=== PATIENT | female | born 1950 | race Caucasian/White ===

== ENCOUNTER 2017-03-05 08:06 | Emergency (ER) | payer MEDICARE, OTHER ==
[2017-03-05] MEDS ORDERED: ACETAMINOPHEN 325 MG TABLET PO STA (08:41)
[2017-03-05] MEDS ORDERED: ACETAMINOPHEN 325 MG TABLET PO ONE (08:58)
--- NOTE | 2017-03-05 09:50 | XRAY Preliminary Report ---
Exam: XR Cervical Spine 2 View IMPRESSION: 1. No fracture or listhesis noted from C1-C7. 2. Anterior cervical fusion at C4-C5 no evidence of hardware failure or loosening. 3. Multilevel degenerative changes, as above. [facility] SITE ID: [id number]
--- NOTE | 2017-03-05 09:52 | XRAY Preliminary Report ---
Exam: XR Ribs w/PA Chest RT IMPRESSION: Normal chest and rib radiography. [facility] SITE ID: [id number]
--- NOTE | 2017-03-05 09:52 | ED Physician Documentation ---
PD HPI TRUNK INJURY - Stated complaint Stated Complaint: GLF - Chief complaint Chief Complaint: Trauma Ch/Bk - History obtained from History obtained from: Patient, Family (spouse) - History of Present Illness Location: Posterior chest, Right chest, Right back Type of injury: Fall. No: Blunt / blow Timing - onset: Today (this morning getting out of bed, lost balance (has some problems with gait/balance from prior neck cord contusion/injury.) Timing - details: Abrupt onset Quality: Pain Worsened by: Moving, Other (deep breathing) Associated symtptoms: No: Weakness, Numbness (none more than usual from prior cord injury.) Contributing factors: No: Anticoagulated Where injury occured: Home Recently seen: Not recently seen Review of Systems Constitutional: denies: Fever, Chills Nose: denies: Rhinorrhea / runny nose, Congestion Throat: denies: Sore throat Cardiac: denies: Palpitations, Pedal edema, Calf pain Respiratory: denies: Dyspnea, Cough GI: denies: Abdominal Pain, Nausea, Vomiting, Diarrhea : denies: Dysuria, Frequency Skin: denies: Rash Musculoskeletal: reports: Neck pain (lower neck to right side). 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 - Past Surgical History Past Surgical History: Yes General: Bowel surgery Ortho: Spine surgery, Other /ALLERGY AND IMMUNOLOGY CHIEF: Hysterectomy Derm: Other - Present Medications Home Medications: Ambulatory Orders Medication Instructions Recorded Confirmed Felbamate [Felbatol] 1,000 mg PO BID 11/04/12 03/05/17 Polyethylene Glycol 3350 [Miralax] 17 gm PO BID PRN #1 bottle 03/27/13 03/05/17 Bisacodyl [Dulcolax] 10 mg PO BID 11/02/13 03/05/17 Clonazepam 1 mg PO QPM 11/02/13 03/05/17 Esomeprazole Magnesium [Nexium] 40 mg PO BID 11/02/13 03/05/17 Ethosuximide 250 mg PO BID 11/02/13 03/05/17 FLUoxetine [PROzac] 40 mg PO DAILY 11/02/13 03/05/17 Folic Acid 0.4 mg PO DAILY 11/02/13 03/05/17 Potassium Chloride 10 meq PO BID 11/02/13 03/05/17 Sennosides [Senna Laxative] 8.6 mg PO DAILY 11/02/13 03/05/17 fentaNYL 25 MCG PATCH [Duragesic] 12 mcg TOP Q72H 11/02/13 03/05/17 Acetaminophen 500 mg PO Q4H 10/19/15 03/05/17 Metoprolol Succinate [Toprol Xl] 25 mg PO ONCE 11/06/15 03/05/17 Triamterene/Hydrochlorothiazid 1 mg PO DAILY 11/06/15 03/05/17 [Triamterene-Hctz 37.5-25 mg Cp] Acyclovir 200 mg PO DAILY 03/05/17 03/05/17 Aspirin 81 mg PO DAILY 03/05/17 03/05/17 Simvastatin 10 mg PO DAILY 03/05/17 03/05/17 - Allergies Allergies/Adverse Reactions: Allergies Allergy/AdvReac Type Severity Reaction Status Date / Time divalproex sodium AdvReac Severe Rash Verified 10/19/15 21:46 [From Depakote] lithium [[place]] AdvReac Severe Anxiety Verified 10/19/15 21:46 adhesive AdvReac Intermediate Itching Verified 10/19/15 21:46 buprenorphine [From Butrans] AdvReac Intermediate Nausea Verified 10/19/15 21:46 morphine AdvReac Intermediate Itching Verified 10/19/15 21:46 nalbuphine HCl * AdvReac Intermediate Itching Verified 10/19/15 21:46 [From Nubain] pregabalin [From Lyrica] AdvReac Intermediate Anxiety Verified 10/19/15 21:46 buprenorphine HCl * AdvReac Unknown Unknown Verified 10/19/15 21:46 [From Suboxone] carbamazepine [From Tegretol] AdvReac Unknown Unknown Verified 10/19/15 21:46 clobazam [From Onfi] AdvReac Unknown Itching Verified 10/19/15 21:46 naloxone HCl * AdvReac Unknown Unknown Verified 10/19/15 21:46 [From Suboxone] saboxone AdvReac Intermediate Nausea Uncoded 04/21/16 21:46 tape AdvReac Intermediate Itching Uncoded 10/19/15 21:46 - Social History Does the pt smoke?: Yes Smoking Status: Former smoker Does the pt drink ETOH?: No Does the pt have substance abuse?: No - Immunizations Immunizations are current?: No Immunizations: TDAP >10years/unknown - POLST Patient has POLST: No PD ED PE NORMAL - Vitals Vital signs reviewed: Yes - General General: Alert and oriented X 3, No acute distress, Well developed/nourished - HEENT HEENT: Atraumatic - Neck Neck: Supple, no meningeal sign, No bony TTP (some muscular tenderness right lower neck. ), No adenopathy - Cardiac Cardiac: RRR, No murmur - Respiratory Respiratory: Clear bilaterally, Other (right chestwall tenderness without crepitance nor deformity. Some bruising noted anterolateral right. No abd tenderness. ) - Abdomen Abdomen: Normal bowel sounds, Soft, Non tender, Non distended - Female Female : Deferred - Rectal Rectal: Deferred - Back Back: No CVA TTP, No spinal TTP - Derm Derm: Normal color, Warm and dry - Extremities Extremities: No tenderness to palpate, Normal ROM s pain - Neuro Neuro: No motor deficit, No sensory deficit Results - Vitals Vitals: Oxygen O2 Source [With Activity] Room air O2 Source Room air - Rads (name of study) chest/ribs Radiology: Prelim report reviewed (normal) neck xray Radiology: Prelim report reviewed (no acute process) PD MEDICAL DECISION MAKING - ED course Complexity details: reviewed results, re-evaluated patient (feeling better with meds in ED. ), considered differential, d/w patient, d/w family (spouse) Departure - Departure Disposition: 01 Home, Self Care Clinical Impression: Fall from slip, trip, or stumble Qualifiers: Encounter type: initial encounter Qualified Code(s): W01.0XXA - Fall on same level from slipping, tripping and stumbling without subsequent striking against object, initial encounter Contusion of right chest wall Qualifiers: Encounter type: initial encounter Qualified Code(s): S20.211A - Contusion of right front wall of thorax, initial encounter Condition: Stable Record reviewed to determine appropriate education?: Yes Instructions: ED Contusion Chest Wall Comments: Continue usual medications. Add Tylenol every 6 hours if needed for pains. Usual activity and physical therapy is okay. This may hurt for several days to even a week or so but should slowly improve. Discharge Date/Time: 03/05/17 10:38
--- NOTE | 2017-03-05 09:52 | XRAY Report ---
EXAM: CERVICAL SPINE RADIOGRAPHY EXAM DATE: 03/05/2017 09:21 AM. CLINICAL HISTORY: Fell this morning. COMPARISONS: None. TECHNIQUE: 3 views. FINDINGS: Alignment: Normal. No spondylolisthesis or scoliosis. Bones: The cervical vertebral bodies and posterior elements are well visualized from the skull base t hrough C6-C7. No fractures or bone lesions. Disks: Anterior cervical fusion C3-C4 without evidence of hardware failure or loosening. The alignmen t is anatomic. Severe degenerative disk disease at C4-C5 and C6-C7 with moderate degenerative disk di sease at C5-C6. Facets: Facet arthrosis in the cervical spine. Soft Tissues: Normal. No prevertebral soft tissue swelling. The visualized lung apices are clear. IMPRESSION: 1. No fracture or listhesis noted from C1-C7. 2. Anterior cervical fusion at C4-C5 no evidence of hardware failure or loosening. 3. Multilevel degenerative changes, as above. [facility] Referring Provider Line: [phone] SITE ID: [id number]
--- NOTE | 2017-03-05 09:55 | XRAY Report ---
EXAM: RIGHT RIB RADIOGRAPHY EXAM DATE: 03/05/2017 09:21 AM. CLINICAL HISTORY: Patient presents status post fall this morning with pain to cervical spine, upper b ack and right upper ribs. COMPARISON: None. TECHNIQUE: 1 view of the chest and 1 views of the ribs. FINDINGS: Bones: Normal. No fracture or bone lesion. Lungs: No focal opacities. No pneumothorax. No pleural effusions. Mediastinum: Heart and mediastinal contours are unremarkable. Other: None. IMPRESSION: Normal chest and rib radiography. [facility] Referring Provider Line: [phone] SITE ID: [id number]
[2017-03-05] MEDS ORDERED: NITROGLYCERIN SL 0.4 MG TABLET SL ONE (10:18)
[2017-03-05 10:37] VITALS: BP 120/67
== END 2017-03-05 10:38 | disposition home or self-care (01) ==
LOC: ED 08:06
DX: S20.211A Contusion of right front wall of thorax, initial encounter (principal); W01.0XXA Fall on same level from slipping, tripping and stumbling without subsequent striking against object, initial encounter; I10 Essential (primary) hypertension; K21.9 Gastro-esophageal reflux disease without esophagitis; J45.909 Unspecified asthma, uncomplicated; Z85.43 Personal history of malignant neoplasm of ovary; Z79.82 Long term (current) use of aspirin; Z87.891 Personal history of nicotine dependence; Z98.1 Arthrodesis status
CPT/HCPCS: 71101; 72040; 99283; A9270

== ENCOUNTER 2017-03-08 15:21 | Emergency (ER) | payer MEDICARE, OTHER ==
--- NOTE | 2017-03-08 16:25 | ED Physician Documentation ---
PD HPI TRUNK INJURY - Stated complaint Stated Complaint: RIB/BACK PX - Chief complaint Chief Complaint: General - History obtained from History obtained from: Patient, Family - History of Present Illness Location: Posterior chest, Right chest Type of injury: Fall Timing - duration: Days Timing - details: Abrupt onset, Still present (worse the past 1-2 days, increased with movement and deep breathing.) Quality: Pain Worsened by: Moving, Palpating (feels click feeling at times, per ), Other (deep breathing) Associated symtptoms: No: Weakness, Numbness Contributing factors: No: Anticoagulated Where injury occured: Home Recently seen: Emergency Dept (few days ago for same with worse pain since that time. With prior visit, had not wanted Rx for pain meds and was going to use OTCs (in addition to her usual fentanyl patch). 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 : Other HEENT: Chronic vision loss Psych:  Musculoskeletal: Other Derm: None - Past Surgical History Past Surgical History: Yes General: Bowel surgery Ortho: Spine surgery, Other /PHOTO TECHNICIAN: Hysterectomy Derm: Other - Present Medications Home Medications: Ambulatory Orders Medication Instructions Recorded Confirmed Felbamate [Felbatol] 1,000 mg PO BID 11/04/12 03/08/17 Polyethylene Glycol 3350 [Miralax] 17 gm PO BID PRN #1 bottle 03/27/13 03/08/17 Bisacodyl [Dulcolax] 10 mg PO BID 11/02/13 03/08/17 Clonazepam 1 mg PO QPM 11/02/13 03/08/17 Esomeprazole Magnesium [Nexium] 40 mg PO BID 11/02/13 03/08/17 Ethosuximide 250 mg PO BID 11/02/13 03/08/17 FLUoxetine [PROzac] 40 mg PO DAILY 11/02/13 03/08/17 Folic Acid 0.4 mg PO DAILY 11/02/13 03/08/17 Potassium Chloride 10 meq PO BID 11/02/13 03/08/17 Sennosides [Senna Laxative] 8.6 mg PO BID 11/02/13 03/08/17 fentaNYL 25 MCG PATCH [Duragesic] 12 mcg TOP Q72H 11/02/13 03/08/17 Acetaminophen 500 mg PO Q4H 10/19/15 03/08/17 Metoprolol Succinate [Toprol Xl] 25 mg PO ONCE 11/06/15 03/08/17 Triamterene/Hydrochlorothiazid 1 mg PO DAILY 11/06/15 03/08/17 [Triamterene-Hctz 37.5-25 mg Cp] Acyclovir 200 mg PO DAILY 03/05/17 03/08/17 Aspirin 81 mg PO DAILY 03/05/17 03/08/17 Simvastatin 10 mg PO DAILY 03/05/17 03/08/17 Naproxen 375 mg PO BID #20 tablet 03/08/17 Oxycodone HCl/Acetaminophen 1 each PO Q6H PRN #20 tablet 03/08/17 [Percocet 5-325 mg Tablet] - Allergies Allergies/Adverse Reactions: Allergies Allergy/AdvReac Type Severity Reaction Status Date / Time divalproex sodium AdvReac Severe Rash Verified 03/08/17 15:32 [From Depakote] lithium [[place]] AdvReac Severe Anxiety Verified 03/08/17 15:32 adhesive AdvReac Intermediate Itching Verified 03/08/17 15:32 buprenorphine [From Butrans] AdvReac Intermediate Nausea Verified 03/08/17 15:32 morphine AdvReac Intermediate Itching Verified 03/08/17 15:32 nalbuphine HCl * AdvReac Intermediate Itching Verified 03/08/17 15:32 [From Nubain] pregabalin [From Lyrica] AdvReac Intermediate Anxiety Verified 03/08/17 15:32 buprenorphine HCl * AdvReac Unknown Unknown Verified 03/08/17 15:32 [From Suboxone] carbamazepine [From Tegretol] AdvReac Unknown Unknown Verified 03/08/17 15:32 clobazam [From Onfi] AdvReac Unknown Itching Verified 03/08/17 15:32 naloxone HCl * AdvReac Unknown Unknown Verified 03/08/17 15:32 [From Suboxone] saboxone AdvReac Intermediate Nausea Uncoded 03/08/17 15:32 tape AdvReac Intermediate Itching Uncoded 03/08/17 15:32 - Social History Does the pt smoke?: Yes Smoking Status: Former smoker Does the pt drink ETOH?: No Does the pt have substance abuse?: No - Immunizations Immunizations are current?: No Immunizations: TDAP >10years/unknown - POLST Patient has POLST: No PD ED PE NORMAL - Vitals Vital signs reviewed: Yes - General General: Alert and oriented X 3, No acute distress, Well developed/nourished - HEENT HEENT: Atraumatic - Neck Neck: Supple, no meningeal sign, No bony TTP, No adenopathy - Cardiac Cardiac: RRR, No murmur - Respiratory Respiratory: Clear bilaterally, Other (tender right posterolateral lower chest ) - Abdomen Abdomen: Soft, Non tender - Derm Derm: Normal color, Warm and dry, Other (bruising now darker purple/brown in posterolateral lower ribs area. ) - Extremities Extremities: No tenderness to palpate, Normal ROM s pain, No edema, No calf tenderness / cord - Neuro Neuro: Other (decreased sensation variably in legs/lower abd/back due to prior spine injury. ). No: Normal speech (some sentence structure problems, baseline per . ) Results - Vitals Vitals: Oxygen O2 Source [With Activity] Room air O2 Source Room air - Rads (name of study) chest CT Radiology: Prelim report reviewed, EMP read contemporaneously (no PTX. mild atelectasis right lower. 10th rib minimal displaced fx (not seen on prior plain CXR)) PD MEDICAL DECISION MAKING - ED course Complexity details: reviewed results, considered differential, d/w patient Departure - Departure Disposition: 01 Home, Self Care Clinical Impression: Rib fracture Qualifiers: Encounter type: subsequent encounter Rib fracture type: single rib Fracture type: closed Laterality: right Fracture healing: with routine healing Qualified Code(s): S22.31XD - Fracture of one rib, right side, subsequent encounter for fracture with routine healing Contusion of right chest wall Qualifiers: Encounter type: subsequent encounter Qualified Code(s): S20.211D - Contusion of right front wall of thorax, subsequent encounter Fall from slip, trip, or stumble Qualifiers: Encounter type: subsequent encounter Qualified Code(s): W01.0XXD - Fall on same level from slipping, tripping and stumbling without subsequent striking against object, subsequent encounter Condition: Stable Record reviewed to determine appropriate education?: Yes Instructions: ED Fx Rib Prescriptions: Naproxen 375 mg PO BID #20 tablet Oxycodone HCl/Acetaminophen [Percocet 5-325 mg Tablet] 1 each PO Q6H PRN #20 tablet PRN Reason: Pain Comments: Purposeful deep breathing several times a day. He can use an incentive spirometer if you have that at home. Alternatively you can think of blowing up a balloon as an alternative. You can do deep breathing exercises. For the pains I would take naproxen 375 mg twice a day for the next 7-10 days to be sure to take it with food to lessen stomach impact. To that add Tylenol every 4 -6 hours or Percocet if needed for worse pain. The pain should improve at about a week and a half from the injury when the broken rib ends tend to stick together with early union. It will take about 4 weeks to fully heal up. Discharge Date/Time: 03/08/17 18:27
[2017-03-08] MEDS ORDERED: oxyCOD/ACETAMIN 5 MG/325 MG TABLET PO STA (16:45)
[2017-03-08] MEDS ORDERED: oxyCOD/ACETAMIN 5 MG/325 MG TABLET PO ONE (17:07)
--- NOTE | 2017-03-08 17:55 | CT Preliminary Report ---
Exam: CT Chest W/O IMPRESSION: 1. Minimal right base posterior consolidation most likely atelectasis. Very tiny right posterior base pleural effusion suspected. No pneumothorax. 2. Acute right posterior 10th rib fracture with the anterior cortex mild cortical step-off, otherwise nondisplaced. [facility] SITE ID: [id number]
--- NOTE | 2017-03-08 17:57 | CT Report ---
EXAM: CT CHEST EXAM DATE: 03/08/2017 05:26 PM. CLINICAL HISTORY: Fall-right chest injury few days ago; hurting more. COMPARISONS: CT thoracic spine 11/02/2013. TECHNIQUE: Routine helical CT imaging was performed through the chest. IV contrast: None. Reconstruct ions: Coronal and sagittal. In accordance with CT protocol optimization, one or more of the following dose reduction techniques w ere utilized for this exam: automated exposure control, adjustment of mA and/or KV based on patient s ize, or use of iterative reconstructive technique. FINDINGS: Lungs/Pleura: Right upper lobe posterior pleural-based nodule measuring 3 mm appears unchanged from 2 014 consistent with benign. Minimal right base posterior consolidation most likely atelectasis. Very tiny right posterior base pleural effusion suspected. No pneumothorax. Mediastinum: Internal fixation hardware right proximal humerus Bones: Acute right posterior 10th rib fracture with the anterior cortex mild cortical step-off, other cadet nondisplaced. Visualized Abdomen: Unremarkable. IMPRESSION: 1. Minimal right base posterior consolidation most likely atelectasis. Very tiny right posterior base pleural effusion suspected. No pneumothorax. 2. Acute right posterior 10th rib fracture with the anterior cortex mild cortical step-off, otherwise nondisplaced. [facility] Referring Provider Line: [phone] SITE ID: [id number]
[2017-03-08 18:04] VITALS: BP 119/75
== END 2017-03-08 18:27 | disposition home or self-care (01) ==
LOC: ED 15:21
DX: S22.31XD Fracture of one rib, right side, subsequent encounter for fracture with routine healing (principal); S20.211D Contusion of right front wall of thorax, subsequent encounter; W01.0XXD Fall on same level from slipping, tripping and stumbling without subsequent striking against object, subsequent encounter; I10 Essential (primary) hypertension; Z87.891 Personal history of nicotine dependence; C56.9 Malignant neoplasm of unspecified ovary; Z90.710 Acquired absence of both cervix and uterus
CPT/HCPCS: 71250; 99283; 99284; A9270

== ENCOUNTER 2017-09-11 22:47 | Emergency (ER) | payer MEDICARE, OTHER ==
[2017-09-11 23:00] VITALS: BP 121/49
[2017-09-11 23:34] LABS: BASOPHILS # (AUTO) 0.1 10^3/uL (0.0-0.1); BASOPHILS % (AUTO) 0.9 %; EOSINOPHILS # (AUTO) 0.5 10^3/uL (0.0-0.7); EOSINOPHILS % (AUTO) 8.4 %; HGB - HEMOGLOBIN 7.9 g/dL (12.0-16.0); LYMPHOCYTES # (AUTO) 1.3 10^3/uL (1.5-3.5); LYMPHOCYTES % (AUTO) 22.8 %; MEAN CORPUSCULAR HEMOGLOBIN 26.7 pg (27.0-31.0); MEAN CORPUSCULAR VOLUME 83.4 fL (81.0-99.0); MEAN PLATELET VOLUME 6.3 fL (7.9-10.8); MONOCYTES # (AUTO) 0.5 10^3/uL (0.0-1.0); MONOCYTES % (AUTO) 8.2 %; NEUTROPHILS # (AUTO) 3.5 10^3/uL (1.5-6.6); NEUTROPHILS % (AUTO) 59.7 %; PLT - PLATELET COUNT 542 10^3/uL (130-450); RED BLOOD COUNT 2.97 10^6/uL (4.20-5.40); RED CELL DISTRIBUTION WIDTH 17.4 % (12.0-15.0); WHITE BLOOD COUNT 5.8 x10^3/uL (4.8-10.8)
[2017-09-11 23:47] LABS: ALBUMIN 3.6 g/dL (3.2-5.5); ALBUMIN/GLOBULIN RATIO 1.1 (1.0-2.2); BILIRUBIN,TOTAL 0.4 mg/dL (0.2-1.0); CREATININE 1.1 mg/dL (0.4-1.0); TOTAL PROTEIN 6.9 g/dL (6.7-8.2)
--- NOTE | 2017-09-12 00:09 | ED Physician Documentation ---
PD HPI ABD PAIN - Stated complaint Stated Complaint: ABD PX - Chief complaint Chief Complaint: Abd Pain - History obtained from History obtained from: Patient, Family - History of Present Illness Timing - onset: Today Timing - details: Now resolved Quality: Aching Location: RUQ Associated symptoms: No: Fever, Nausea, Vomiting, Diarrhea, Constipation Similar symptoms before: Has not had sx before Recently seen: Surgery - Additional information Additional information: Patient is a 66 year old female presenting to the emergency department for abdominal pain. According to patient and family patient recently had surgery on her humerus and has been on pain medications. patient's states that tonight he was felling the patient's belly since her leg has been cramping recently and when he pushed on it patient seemed in pain. Upon initial evaluation in the emergency department patient denied any abdominal pain and only complained of leg cramping. Review of Systems Constitutional: denies: Fever, Chills Eyes: denies: Decreased vision Ears: denies: Ear pain Nose: reports: Reviewed and negative Throat: reports: Reviewed and negative Cardiac: denies: Chest pain / pressure, Palpitations Respiratory: denies: Dyspnea, Cough, Wheezing GI: reports: Abdominal Pain, Constipation. denies: Nausea, Vomiting : denies: Dysuria, Frequency, Hesitancy Skin: denies: Rash, Lesions Musculoskeletal: reports: Extremity pain. denies: Neck pain, Back pain Neurologic: denies: Generalized weakness, Focal weakness, Numbness Immunocompromised: denies: Immunocompromised PD PAST MEDICAL HISTORY - Past Medical History Cardiovascular: Hypertension Respiratory: Asthma Neuro: Seizure disorder Endocrine/Autoimmune: None GI: GERD DIRECTOR DECISION SUPPORT: 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 : Other HEENT: Chronic vision loss Psych:  Musculoskeletal: Other Derm: None - Past Surgical History Past Surgical History: Yes General: Bowel surgery Ortho: Spine surgery, Other /DIRECTOR DECISION SUPPORT: Hysterectomy Derm: Other - Present Medications Home Medications: Ambulatory Orders Medication Instructions Recorded Confirmed Felbamate [Felbatol] 1,000 mg PO BID 11/04/12 03/08/17 Polyethylene Glycol 3350 [Miralax] 17 gm PO BID PRN #1 bottle 03/27/13 03/08/17 Bisacodyl [Dulcolax] 10 mg PO BID 11/02/13 03/08/17 Clonazepam 1 mg PO QPM 11/02/13 03/08/17 Esomeprazole Magnesium [Nexium] 40 mg PO BID 11/02/13 03/08/17 Ethosuximide 250 mg PO BID 11/02/13 03/08/17 FLUoxetine [PROzac] 40 mg PO DAILY 11/02/13 03/08/17 Folic Acid 0.4 mg PO DAILY 11/02/13 03/08/17 Potassium Chloride 10 meq PO BID 11/02/13 03/08/17 Sennosides [Senna Laxative] 8.6 mg PO BID 11/02/13 03/08/17 fentaNYL 25 MCG PATCH [Duragesic] 12 mcg TOP Q72H 11/02/13 03/08/17 Acetaminophen 500 mg PO Q4H 10/19/15 03/08/17 Metoprolol Succinate [Toprol Xl] 25 mg PO ONCE 11/06/15 03/08/17 Triamterene/Hydrochlorothiazid 1 mg PO DAILY 11/06/15 03/08/17 [Triamterene-Hctz 37.5-25 mg Cp] Acyclovir 200 mg PO DAILY 03/05/17 03/08/17 Aspirin 81 mg PO DAILY 03/05/17 03/08/17 Simvastatin 10 mg PO DAILY 03/05/17 03/08/17 Naproxen 375 mg PO BID #20 tablet 03/08/17 Oxycodone HCl/Acetaminophen 1 each PO Q6H PRN #20 tablet 03/08/17 [Percocet 5-325 mg Tablet] - Allergies Allergies/Adverse Reactions: Allergies Allergy/AdvReac Type Severity Reaction Status Date / Time divalproex sodium AdvReac Severe Rash Verified 09/11/17 22:59 [From Depakote] lithium [[place]] AdvReac Severe Anxiety Verified 09/11/17 22:59 adhesive AdvReac Intermediate Itching Verified 09/11/17 22:59 buprenorphine [From Butrans] AdvReac Intermediate Nausea Verified 09/11/17 22:59 morphine AdvReac Intermediate Itching Verified 09/11/17 22:59 nalbuphine HCl * AdvReac Intermediate Itching Verified 09/11/17 22:59 [From Nubain] pregabalin [From Lyrica] AdvReac Intermediate Anxiety Verified 09/11/17 22:59 buprenorphine HCl * AdvReac Unknown Unknown Verified 09/11/17 22:59 [From Suboxone] carbamazepine [From Tegretol] AdvReac Unknown Unknown Verified 09/11/17 22:59 clobazam [From Onfi] AdvReac Unknown Itching Verified 09/11/17 22:59 naloxone HCl * AdvReac Unknown Unknown Verified 09/11/17 22:59 [From Suboxone] saboxone AdvReac Intermediate Nausea Uncoded 09/11/17 22:59 tape AdvReac Intermediate Itching Uncoded 09/11/17 22:59 - Social History Does the pt smoke?: Yes Smoking Status: Current every day smoker Does the pt drink ETOH?: No Does the pt have substance abuse?: No - Immunizations Immunizations are current?: No Immunizations: TDAP >10years/unknown - POLST Patient has POLST: No PD ED PE NORMAL - Vitals Vital signs reviewed: Yes - General General: Alert and oriented X 3, No acute distress - HEENT HEENT: Atraumatic - Cardiac Cardiac: RRR - Respiratory Respiratory: No respiratory distress - Abdomen Abdomen: Soft, Non distended - Derm Derm: Normal color, No rash - Extremities Extremities: No deformity - Neuro Neuro: Alert and oriented X 3, No motor deficit, No sensory deficit, Normal speech Eye Opening: Spontaneous Motor: Obeys Commands Verbal: Oriented GCS Score: 15 - Psych Psych: Normal mood PD ED PE EXPANDED - HEENT HEENT: Dry mucous membranes - Abdomen Abdomen: Tender to palpation (minimal tenderness to palpation), RUQ Results - Vitals Vitals: Vital Signs - 24 hr 09/11/17 22:54 Temperature 36.5 C Heart Rate 87 Respiratory 18 Rate Blood Pressure 121/49 L O2 Saturation 97 Oxygen O2 Source [With Activity] Room air O2 Source Room air - Labs Labs: Laboratory Tests 09/11/17 09/11/17 23:28 23:28 WBC 5.8 RBC 2.97 L Hgb 7.9 L Hct 24.7 L MCV 83.4 MCH 26.7 L MCHC 32.0 RDW 17.4 H Plt Count 542 H MPV 6.3 L Neut # 3.5 Lymph # 1.3 L Davison # 0.5 Eos # 0.5 Baso # 0.1 Absolute Nucleated RBC 0.01 Nucleated RBC % 0.1 Sodium 133 L Potassium 4.0 Chloride 98 L Carbon Dioxide 25 Anion Gap 10.0 BUN 22 H Creatinine 1.1 H Estimated GFR (MDRD) 50 L Glucose 118 H Calcium 10.0 Total Bilirubin 0.4 AST 20 ALT 14 Alkaline Phosphatase 90 Total Protein 6.9 Albumin 3.6 Globulin 3.3 Albumin/Globulin Ratio 1.1 Lipase 37 PD MEDICAL DECISION MAKING - ED course Complexity details: reviewed old records, reviewed results, re-evaluated patient , considered differential, d/w patient, d/w family ED course: Patient was seen and examined at bedside. labs were drawn and showed no acute abnormality. Findings were discussed with the family and it was decided to hold off on imaging at this time. Patient and family were given detailed discharge and follow up instructions. Patient required no further work up and was stable for discharge with outpatient follow up. Departure - Departure Disposition: 01 Home, Self Care Clinical Impression: Abdominal pain Condition: Good Instructions: ED Abdominal Pain Unkn Cause Follow-Up: PAOLO SOUZA MD [Primary Care Provider] - Within 3 Days Comments: Your diagnostics today were within normal limits. there were no new major abnormalities on your blood work. You should follow up with your doctor if the symptoms return. You should return to the emergency department for fevers, chills, vomiting, new worsening or uncontrolled symptoms. Discharge Date/Time: 09/12/17 00:31
== END 2017-09-12 00:31 | disposition home or self-care (01) ==
LOC: ED 22:47
DX: S42.494A Other nondisplaced fracture of lower end of right humerus, initial encounter for closed fracture (principal); W01.0XXA Fall on same level from slipping, tripping and stumbling without subsequent striking against object, initial encounter; R10.11 Right upper quadrant pain; I10 Essential (primary) hypertension; J45.909 Unspecified asthma, uncomplicated; K21.9 Gastro-esophageal reflux disease without esophagitis; F17.200 Nicotine dependence, unspecified, uncomplicated; Z85.43 Personal history of malignant neoplasm of ovary
CPT/HCPCS: 36415; 73030; 73060; 73080; 73110; 80053; 83690; 85025; 96372; 99283; A9270; J1170

== ENCOUNTER 2017-09-12 12:03 | Emergency (ER) | payer MEDICARE, OTHER ==
--- NOTE | 2017-09-12 13:20 | XRAY Report ---
EXAM: RIGHT WRIST RADIOGRAPHY EXAM DATE: 09/12/2017 01:04 PM. CLINICAL HISTORY: GLF rt shoulder, elbow, arm, wrist pain. COMPARISON: None. TECHNIQUE: 3 views. FINDINGS: Bones: Normal. No fractures or bone lesions. Joints: Normal. No subluxations. Soft Tissues: Calcifications consistent with chondrocalcinosis in the region of the triangular fibroc artilage, scapholunate and lunate-triquetral proximal interspaces. IMPRESSION: 1. No definite acute abnormality. 2. Chondrocalcinosis. [facility] Referring Provider Line: [phone] SITE ID: [id number]
--- NOTE | 2017-09-12 13:20 | XRAY Preliminary Report ---
Exam: XR WRIST 4 VIEW RT IMPRESSION: 1. No definite acute abnormality. 2. Chondrocalcinosis. [facility] SITE ID: [id number]
--- NOTE | 2017-09-12 13:38 | XRAY Report ---
EXAM: RIGHT SHOULDER RADIOGRAPHY EXAM DATE: 09/12/2017 01:03 PM. CLINICAL HISTORY: GLF, rt arm shoulder pain. COMPARISON: Right elbow today, right shoulder 11/16/2015. TECHNIQUE: 4 views. FINDINGS: Bones: There is a lateral plate with multiple bicortical screws extending from the humeral head throu gh the mid humeral shaft without evidence of hardware failure or migration. There are also some aband onment screw holes in the proximal to mid humeral shaft. There is a chronic fracture at the proximal humeral shaft just below the surgical neck which does not show definite solid osseous union, although there is some callus formation particularly laterally. In addition, there is an incompletely visuali zed nondisplaced fracture of the distal humeral shaft just below the plate. No other acute fracture i s identified. Joints: The glenohumeral and acromioclavicular joints are normal. Soft tissues: The visualized hemithorax is unremarkable. No soft tissue swelling. IMPRESSION: 1. Incompletely visualized nondisplaced fracture of the distal right humeral shaft just below the pro ximal to mid humeral plate. 2. Prior ORIF of a proximal shaft right humerus fracture without evidence of solid bony union. [facility] Referring Provider Line: [phone] SITE ID: [id number]
--- NOTE | 2017-09-12 13:38 | XRAY Report ---
EXAM: RIGHT ELBOW RADIOGRAPHY EXAM DATE: 09/12/2017 01:02 PM. CLINICAL HISTORY: GLF rt arm, pain. COMPARISON: Right shoulder today. TECHNIQUE: 3 views. FINDINGS: Bones: Proximal to mid right humeral shaft plate and screws incompletely visualized. Abandoned screw tracks are noted in the mid humerus. There is a nondisplaced acute fracture obliquely oriented throug h the distal humeral shaft. Proximal radius and although appear intact. Joints: Normal. No effusion. No subluxation. Soft Tissues: Normal. No soft tissue swelling. IMPRESSION: 1. Nondisplaced obliquely oriented acute fracture through the distal right humeral shaft. 2. Plate and screws along the mid right humeral shaft, incompletely visualized. Old screw tracts also are noted. [facility] Referring Provider Line: [phone] SITE ID: [id number]
--- NOTE | 2017-09-12 13:38 | XRAY Preliminary Report ---
Exam: XR SHOULDER 3 VIEW RT IMPRESSION: 1. Incompletely visualized nondisplaced fracture of the distal right humeral shaft just below the pro ximal to mid humeral plate. 2. Prior ORIF of a proximal shaft right humerus fracture without evidence of solid bony union. [facility] SITE ID: [id number]
--- NOTE | 2017-09-12 13:38 | XRAY Preliminary Report ---
Exam: XR ELBOW 3 VIEW RT IMPRESSION: 1. Nondisplaced obliquely oriented acute fracture through the distal right humeral shaft. 2. Plate and screws along the mid right humeral shaft, incompletely visualized. Old screw tracts also are noted. [facility] SITE ID: [id number]
[2017-09-12] MEDS ORDERED: oxyCODONE 5 MG TABLET PO STA (13:40)
--- NOTE | 2017-09-12 13:42 | ED Physician Documentation ---
PD HPI UPPER EXT INJURY - Stated complaint Stated Complaint: GLF - Chief complaint Chief Complaint: Ext Problem - History obtained from History obtained from: Patient, Family () - History of Present Illness Location: Other (She is a little over 2 weeks out from a redo of humeral ORIF on the right for a humeral fracture. This was done by Dr. Harris at [facility]. She fell today and felt a pop in the arm and now has new severe pain in the arm. 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 : Other HEENT: Chronic vision loss Psych:  Musculoskeletal: Other Derm: None - Past Surgical History Past Surgical History: Yes General: Bowel surgery Ortho: Spine surgery, Other /BOILER WATER TESTER: Hysterectomy Derm: Other - Present Medications Home Medications: Ambulatory Orders Medication Instructions Recorded Confirmed Felbamate [Felbatol] 1,000 mg PO BID 11/04/12 03/08/17 Polyethylene Glycol 3350 [Miralax] 17 gm PO BID PRN #1 bottle 03/27/13 03/08/17 Bisacodyl [Dulcolax] 10 mg PO BID 11/02/13 03/08/17 Clonazepam 1 mg PO QPM 11/02/13 03/08/17 Esomeprazole Magnesium [Nexium] 40 mg PO BID 11/02/13 03/08/17 Ethosuximide 250 mg PO BID 11/02/13 03/08/17 FLUoxetine [PROzac] 40 mg PO DAILY 11/02/13 03/08/17 Folic Acid 0.4 mg PO DAILY 11/02/13 03/08/17 Potassium Chloride 10 meq PO BID 11/02/13 03/08/17 Sennosides [Senna Laxative] 8.6 mg PO BID 11/02/13 03/08/17 fentaNYL 25 MCG PATCH [Duragesic] 12 mcg TOP Q72H 11/02/13 03/08/17 Acetaminophen 500 mg PO Q4H 10/19/15 03/08/17 Metoprolol Succinate [Toprol Xl] 25 mg PO ONCE 11/06/15 03/08/17 Triamterene/Hydrochlorothiazid 1 mg PO DAILY 11/06/15 03/08/17 [Triamterene-Hctz 37.5-25 mg Cp] Acyclovir 200 mg PO DAILY 03/05/17 03/08/17 Aspirin 81 mg PO DAILY 03/05/17 03/08/17 Simvastatin 10 mg PO DAILY 03/05/17 03/08/17 Naproxen 375 mg PO BID #20 tablet 03/08/17 Oxycodone HCl/Acetaminophen 1 each PO Q6H PRN #20 tablet 03/08/17 [Percocet 5-325 mg Tablet] - Allergies Allergies/Adverse Reactions: Allergies Allergy/AdvReac Type Severity Reaction Status Date / Time divalproex sodium AdvReac Severe Rash Verified 09/12/17 12:16 [From Depakote] lithium [[place]] AdvReac Severe Anxiety Verified 09/12/17 12:16 adhesive AdvReac Intermediate Itching Verified 09/12/17 12:16 buprenorphine [From Butrans] AdvReac Intermediate Nausea Verified 09/12/17 12:16 morphine AdvReac Intermediate Itching Verified 09/12/17 12:16 nalbuphine HCl * AdvReac Intermediate Itching Verified 09/12/17 12:16 [From Nubain] pregabalin [From Lyrica] AdvReac Intermediate Anxiety Verified 09/12/17 12:16 buprenorphine HCl * AdvReac Unknown Unknown Verified 09/12/17 12:16 [From Suboxone] carbamazepine [From Tegretol] AdvReac Unknown Unknown Verified 09/12/17 12:16 clobazam [From Onfi] AdvReac Unknown Itching Verified 09/12/17 12:16 naloxone HCl * AdvReac Unknown Unknown Verified 09/12/17 12:16 [From Suboxone] saboxone AdvReac Intermediate Nausea Uncoded 09/11/17 22:59 tape AdvReac Intermediate Itching Uncoded 09/11/17 22:59 - Social History Does the pt smoke?: Yes Smoking Status: Current every day smoker Does the pt drink ETOH?: No Does the pt have substance abuse?: No - Immunizations Immunizations are current?: No Immunizations: TDAP >10years/unknown - POLST Patient has POLST: No PD ED PE NORMAL - Vitals Vital signs reviewed: Yes - General General: Alert and oriented X 3, No acute distress - HEENT HEENT: PERRL, EOMI - Neck Neck: Supple, no meningeal sign, No bony TTP - Extremities Extremities: Other (Right arm is kind of diffusely tender above the elbow, surgical incision is clean dry and intact. She has good range of motion at the wrist with normal sensation throughout the hand and normal radial pulse.) - Neuro Neuro: Alert and oriented X 3, Normal speech Results - Vitals Vitals: Vital Signs - 24 hr 09/12/17 12:09 Temperature 36.6 C Heart Rate 80 Respiratory 16 Rate Blood Pressure 132/64 H O2 Saturation 100 Oxygen O2 Source [] Room air O2 Source Room air - Rads (name of study) X-rays of the right shoulder, elbow, wrist Radiology: EMP read contemporaneously (Notable for a nondisplaced oblique fracture just below the end of the hardware on the distal humerus.) PD MEDICAL DECISION MAKING - ED course ED course: I spoke with her orthopedic surgeon, Dr. Harris at [facility] who reviewed the images and wanted her go back in the Gillespie brace and take aggressive fall precautions. They will follow up with her in the clinic. Departure - Departure Disposition: 01 Home, Self Care Clinical Impression: Fall from slip, trip, or stumble Qualifiers: Encounter type: initial encounter Qualified Code(s): W01.0XXA - Fall on same level from slipping, tripping and stumbling without subsequent striking against object, initial encounter Humerus distal fracture Qualifiers: Encounter type: initial encounter Fracture type: closed Fracture morphology: other fracture Fracture alignment: nondisplaced Laterality: right Qualified Code (s): S42.494A - Other nondisplaced fracture of lower end of right humerus, initial encounter for closed fracture Condition: Good Record reviewed to determine appropriate education?: Yes Comments: Dr. Harris would like you to go back into the Gillespie brace, he also recommends pretty much being in the wheelchair at all times without unassisted transfers to avoid further falls. He will see you in 2 weeks, the clinic will call you. Call him if you do not hear from them by mid next week.
--- NOTE | 2017-09-12 14:50 | XRAY Preliminary Report ---
Exam: XR HUMERUS RT IMPRESSION: 1. Healing proximal humeral fracture status post ORIF in stable alignment. 2. Recent nondisplaced hairline fracture in the distal humeral shaft. [facility] SITE ID: [id number]
--- NOTE | 2017-09-12 14:51 | XRAY Report ---
EXAM: RIGHT HUMERUS RADIOGRAPHY EXAM DATE: 09/12/2017 02:32 PM. CLINICAL HISTORY: Follow-up humeral fracture fixation. COMPARISON: Intraoperative right humerus 11/06/2015. TECHNIQUE: 2 views. FINDINGS: Intact sideplate and screws bridging the healing proximal humeral fracture in near anatomic alignment. Reactive sclerosis about the fracture site. There is a nondisplaced oblique hairline fracture in the distal humeral shaft just distal to the side plate. IMPRESSION: 1. Healing proximal humeral fracture status post ORIF in stable alignment. 2. Recent nondisplaced hairline fracture in the distal humeral shaft. [facility] Referring Provider Line: [phone] SITE ID: [id number]
[2017-09-12] MEDS ORDERED: HYDROmorphone 1 MG/ML SYRINGE IM STA (16:18)
[2017-09-12 17:26] VITALS: BP 137/71
== END 2017-09-12 17:17 | disposition home or self-care (01) ==
LOC: ED 12:03
DX: S42.494A Other nondisplaced fracture of lower end of right humerus, initial encounter for closed fracture (principal); W01.0XXA Fall on same level from slipping, tripping and stumbling without subsequent striking against object, initial encounter; I10 Essential (primary) hypertension; K21.9 Gastro-esophageal reflux disease without esophagitis; Z85.43 Personal history of malignant neoplasm of ovary; Z79.82 Long term (current) use of aspirin; F17.200 Nicotine dependence, unspecified, uncomplicated
CPT/HCPCS: 99283

== ENCOUNTER 2017-10-17 22:35 | Outpatient (CLI) | payer MEDICARE, OTHER | END 2017-10-17 22:36 | disposition critical access hospital (66) | LOC: EMS 22:35 | PROVIDERS: ATTEND Surgery | DX: R51 Headache (principal); W01.190A Fall on same level from slipping, tripping and stumbling with subsequent striking against furniture, initial encounter | CPT/HCPCS: A0425; A0429 ==

== ENCOUNTER 2017-10-17 22:51 | Emergency (ER) | payer MEDICARE, OTHER ==
[2017-10-17] MEDS ORDERED: SODIUM CHLORIDE 0.9% 1,000 ML IV ONE (23:17)
[2017-10-17] MEDS ORDERED: KETOROLAC 60 MG/2 ML VIAL IVP STA (23:19)
--- NOTE | 2017-10-17 23:19 | ED Physician Documentation ---
PD HPI Fall - Stated complaint Stated Complaint: GLF - Chief complaint Chief Complaint: Trauma Hd/Nk - History obtained from History obtained from: Patient - History of Present Illness Mechanism of injury: Lost balance ( states the patient has problems with balance and was bending over to pear picker something and fell over, striking head on a chair and then to ground.) Fall distance: Standing position Where injury occurred: Home Timing - onset: Today (just IN [employer]) Injury(ies) location: Head, Neck, Back, Right Upper Extremity (Had recent humerus fracture and is being seen by Ortho at [facility], healing okay and has another appt this coming week. The arm is hurting more since fall but has same level of ROM. Some low back pain initially but is less on arrival. Denies injury to chest and abdomen.) Quality of pain: Pain, Aching Associated symptoms: No: LOC, AMS Worsens with: Movement (of right arm and some pain with ROM of the neck.) Similar symptoms before: Has not had sx before Review of Systems Unable to obtain: Confused (from prior CVA, so ROS gotten from .) Constitutional: denies: Fever Nose: denies: Rhinorrhea / runny nose, Congestion Throat: denies: Sore throat Respiratory: denies: Cough GI: denies: Vomiting, Diarrhea Skin: denies: Abrasion (s), Laceration (s) Musculoskeletal: reports: Neck pain (chronic to some degree, with prior neck surgery.), Back pain (chronic) Neurologic: reports: Generalized weakness, Headache, Head injury. 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: 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 : Other HEENT: Chronic vision loss Psych:  Musculoskeletal: Other Derm: None - Past Surgical History Past Surgical History: Yes General: Bowel surgery Ortho: Spine surgery, Other /LABORER CHEMICAL PROCESSING: Hysterectomy Derm: Other - Present Medications Home Medications: Ambulatory Orders Medication Instructions Recorded Confirmed Felbamate [Felbatol] 800 mg PO BID 11/04/12 10/17/17 Polyethylene Glycol 3350 [Miralax] 17 gm PO BID PRN #1 bottle 03/27/13 10/17/17 Bisacodyl [Dulcolax] 10 mg PO BID 11/02/13 10/17/17 Clonazepam 2 mg PO QPM 11/02/13 10/17/17 Esomeprazole Magnesium [Nexium] 40 mg PO BID 11/02/13 10/17/17 Ethosuximide 250 mg PO BID 11/02/13 10/17/17 FLUoxetine [PROzac] 40 mg PO DAILY 11/02/13 10/17/17 Folic Acid 0.4 mg PO DAILY 11/02/13 10/17/17 fentaNYL 25 MCG PATCH [Duragesic] 12 mcg TOP Q72H 11/02/13 10/17/17 Acetaminophen 500 mg PO Q4H 10/19/15 10/17/17 Metoprolol Succinate [Toprol Xl] 25 mg PO ONCE 11/06/15 10/17/17 Triamterene/Hydrochlorothiazid 1 mg PO DAILY 11/06/15 10/17/17 [Triamterene-Hctz 37.5-25 mg Cp] Acyclovir 200 mg PO DAILY 03/05/17 10/17/17 Aspirin 81 mg PO DAILY 03/05/17 10/17/17 Simvastatin 10 mg PO DAILY 03/05/17 10/17/17 Oxycodone HCl/Acetaminophen 1 each PO Q6H PRN #20 tablet 03/08/17 10/17/17 [Percocet 5-325 mg Tablet] - Allergies Allergies/Adverse Reactions: Allergies Allergy/AdvReac Type Severity Reaction Status Date / Time divalproex sodium AdvReac Severe Rash Verified 10/18/17 19:23 [From Depakote] lithium [[place]] AdvReac Severe Anxiety Verified 10/18/17 19:23 adhesive AdvReac Intermediate Itching Verified 10/18/17 19:23 buprenorphine [From Butrans] AdvReac Intermediate Nausea Verified 10/18/17 19:23 morphine AdvReac Intermediate Itching Verified 10/18/17 19:23 nalbuphine HCl * AdvReac Intermediate Itching Verified 10/18/17 19:23 [From Nubain] pregabalin [From Lyrica] AdvReac Intermediate Anxiety Verified 10/18/17 19:23 buprenorphine HCl * AdvReac Unknown Unknown Verified 10/18/17 19:23 [From Suboxone] carbamazepine [From Tegretol] AdvReac Unknown Unknown Verified 10/18/17 19:23 clobazam [From Onfi] AdvReac Unknown Itching Verified 10/18/17 19:23 naloxone HCl * AdvReac Unknown Unknown Verified 10/18/17 19:23 [From Suboxone] saboxone AdvReac Intermediate Nausea Uncoded 10/18/17 19:23 tape AdvReac Intermediate Itching Uncoded 10/18/17 19:23 - Social History Does the pt smoke?: Yes Smoking Status: Current every day smoker Does the pt drink ETOH?: No Does the pt have substance abuse?: No - Immunizations Immunizations are current?: No Immunizations: TDAP >10years/unknown - POLST Patient has POLST: No PD ED PE NORMAL - Vitals Vital signs reviewed: Yes - General General: Alert and oriented X 3, Well developed/nourished - HEENT HEENT: Other (some tenderness back of head without deformity ) - Neck Neck: Supple, no meningeal sign, No adenopathy, Other (tender lower cervical muscles to the sides. ) - Cardiac Cardiac: RRR, No murmur - Respiratory Respiratory: Clear bilaterally, Other (no chestwall tenderness) - Abdomen Abdomen: Soft, Non tender - Derm Derm: Normal color, Warm and dry - Extremities Extremities: Other (right upper arm with slow guarded ROM but able to flex and extend. ) - Neuro Neuro: No motor deficit, No sensory deficit, Normal speech. No: Alert and oriented X 3 (oriented to person and place, but alert and happy, witty, so symptoms more c/w prior CVA/head injury and not concussion now. ) Results - Vitals Vitals: Oxygen O2 Source [] Room air O2 Source Room air - Labs Labs: Laboratory Tests 10/18/17 10/18/17 00:40 00:40 WBC 4.3 L RBC 3.22 L Hgb 8.1 L Hct 25.1 L MCV 77.9 L MCH 25.0 L MCHC 32.1 RDW 17.2 H Plt Count 236 MPV 6.2 L Neut # 2.8 Lymph # 0.9 L [place] # 0.3 Eos # 0.2 Baso # 0.1 Absolute Nucleated RBC 0.00 Nucleated RBC % 0.0 Sodium 135 Potassium 3.6 Chloride 103 Carbon Dioxide 23 Anion Gap 9.0 BUN 25 H Creatinine 1.0 Estimated GFR (MDRD) 55 L Glucose 98 Calcium 9.5 Total Bilirubin 0.4 AST 17 ALT 14 Alkaline Phosphatase 107 Total Protein 6.5 L Albumin 3.5 Globulin 3.0 Albumin/Globulin Ratio 1.2 Lipase 58 H - Rads (name of study) head CT Radiology: Prelim report reviewed (no acute findings, no bleeding) cervical spine Radiology: Prelim report reviewed (prior surgical changes; no acute fracture. ) right humerus Radiology: Prelim report reviewed (prior fracture seen, not displaced. ) PD MEDICAL DECISION MAKING - ED course Complexity details: reviewed results, considered differential, d/w patient, d/w family Departure - Departure Disposition: 01 Home, Self Care Clinical Impression: Chronic anemia Accidental fall Qualifiers: Encounter type: initial encounter Qualified Code(s): W19.XXXA - Unspecified fall, initial encounter Head contusion Qualifiers: Encounter type: initial encounter Contusion of head detail: scalp Qualified Code(s): S00.03XA - Contusion of scalp, initial encounter Humerus distal fracture Qualifiers: Encounter type: subsequent encounter Fracture type: closed Fracture morphology : other fracture Fracture alignment: nondisplaced Laterality: right Fracture healing: with routine healing Qualified Code(s): S42.494D - Other nondisplaced fracture of lower end of right humerus, subsequent encounter for fracture with routine healing Condition: Stable Record reviewed to determine appropriate education?: Yes Instructions: ED Head Injury Closed Comments: Continue usual medications. No obvious significant injury from the fall tonight. Follow-up with your orthopedist for the arm as planned. Return if other symptoms or problems. Discharge Date/Time: 10/18/17 01:19
--- NOTE | 2017-10-18 00:17 | XRAY Report ---
EXAM: RIGHT HUMERUS RADIOGRAPHY EXAM DATE: 10/17/2017 11:42 PM. CLINICAL HISTORY: Fall with arm pain; recent humerus fracture. COMPARISON: 09/12/2017. TECHNIQUE: 2 views. FINDINGS: Bones: Osteopenia. Metal plate secured to the anterolateral surface of the mid and proximal humerus b y means of multiple screws, traversing a previously described proximal humerus fracture and holding i t in anatomic alignment. Additional nondisplaced fracture extending distally also again noted. Increa sed callus formation at both sites, but not completely bridging at this time. No new fracture or othe r bone lesion. Joints: Unremarkable. Soft Tissues: Unremarkable. IMPRESSION: Healing humerus fractures. No new lesion. [facility] Referring Provider Line: [phone] SITE ID: [id number]
--- NOTE | 2017-10-18 00:28 | CT Report ---
EXAM: CT HEAD EXAM DATE: 10/17/2017 11:43 PM. CLINICAL HISTORY: Fall. Head trauma. COMPARISON: CT head 11/06/2015. TECHNIQUE: Multiaxial CT images were obtained from the foramen magnum to the vertex. Reformats: Coron al. IV contrast: None. In accordance with CT protocol optimization, one or more of the following dose reduction techniques w ere utilized for this exam: automated exposure control, adjustment of mA and/or KV based on patient s ize, or use of iterative reconstructive technique. FINDINGS: Parenchyma: No intraparenchymal hemorrhage. No evidence of mass, midline shift, or CT findings of acu te infarction. Freedman-white differentiation is distinct. Chronic lacunar infarct in the head of the rig ht caudate nucleus is unchanged. Uver-iu-fjucdxji chronic microvascular ischemic change in the deep w sabine matter appears stable. Extraaxial Spaces: Normal for age. No subdural or epidural collections identified. Ventricles: Normal in size and position. Sinuses and Orbits: Imaged paranasal sinuses, orbits, and mastoids show no significant abnormality. Bones: No evidence of fracture or calvarial defect. Other: None. IMPRESSION: 1. No acute intracranial abnormality. No change compared to 11/06/2015. 2. No skull fracture. 3. Small chronic lacunar infarct in right caudate nucleus is unchanged. Chronic microvascular change in the deep white matter appears stable. [facility] Referring Provider Line: [phone] SITE ID: [id number]
--- NOTE | 2017-10-18 00:28 | CT Preliminary Report ---
Exam: CT HEAD W/O IMPRESSION: 1. No acute intracranial abnormality. No change compared to 11/06/2015. 2. No skull fracture. 3. Small chronic lacunar infarct in right caudate nucleus is unchanged. Chronic microvascular change in the deep white matter appears stable. [facility] SITE ID: [id number]
--- NOTE | 2017-10-18 00:42 | CT Report ---
EXAM: CT CERVICAL SPINE WITHOUT CONTRAST DATE: 10/17/2017 11:54 PM. HISTORY: Fall. Neck pain. COMPARISONS: CT cervical spine 11/02/2013. TECHNIQUE: Thin-section axial images were acquired of the cervical spine without contrast. Post-proce ssing: Coronal and sagittal reformats. Other: None. In accordance with CT protocol optimization, one or more of the following dose reduction techniques w ere utilized for this exam: automated exposure control, adjustment of mA and/or KV based on patient s ize, or use of iterative reconstructive technique. FINDINGS: Alignment: No scoliosis or spondylolisthesis. Bones: No fracture or bone lesion. Interspace Levels/Facets: There is stable anterior cervical diskectomy and fusion at C3-C4. Interbody fusion graft appears to b e incorporated with adjacent endplates. The anterior fixation plate and screw system is intact. There is moderate to severe spondylosis and degenerative disk disease at the remaining cervical level s which appears unchanged compared to the prior CT dated 11/02/2013. Posterior osseous ridging and disk bulging produces moderate central canal stenosis at C2-C3. There is also oljv-ra-lycjxkrb central ca nal stenosis at C5-C6 and C6-C7. Uncovertebral and facet hypertrophy also produces multilevel bilater al foraminal stenosis. These findings appear stable. Musculature: Unremarkable. Other: The paravertebral and prevertebral soft tissues are unremarkable. The lung apices are clear. IMPRESSION: 1. No acute abnormality. No cervical spine fracture or subluxation. 2. Stable solid anterior interbody fusion at C3-C4. Fixation plate and screws are intact. 3. Moderate to severe multilevel cervical spondylosis. 4. No significant change compared to CT cervical spine dated 11/02/2013. [facility] Referring Provider Line: [phone] SITE ID: [id number]
[2017-10-18 00:49] LABS: BASOPHILS # (AUTO) 0.1 10^3/uL (0.0-0.1); BASOPHILS % (AUTO) 1.7 %; EOSINOPHILS # (AUTO) 0.2 10^3/uL (0.0-0.7); HGB - HEMOGLOBIN 8.1 g/dL (12.0-16.0); LYMPHOCYTES # (AUTO) 0.9 10^3/uL (1.5-3.5); LYMPHOCYTES % (AUTO) 20.7 %; MEAN CORPUSCULAR HGB CONC 32.1 g/dL (32.0-36.0); MEAN CORPUSCULAR VOLUME 77.9 fL (81.0-99.0); MEAN PLATELET VOLUME 6.2 fL (7.9-10.8); MONOCYTES # (AUTO) 0.3 10^3/uL (0.0-1.0); MONOCYTES % (AUTO) 6.7 %; NEUTROPHILS # (AUTO) 2.8 10^3/uL (1.5-6.6); NEUTROPHILS % (AUTO) 65.9 %; PLT - PLATELET COUNT 236 10^3/uL (130-450); RED BLOOD COUNT 3.22 10^6/uL (4.20-5.40); RED CELL DISTRIBUTION WIDTH 17.2 % (12.0-15.0); WHITE BLOOD COUNT 4.3 x10^3/uL (4.8-10.8)
[2017-10-18 00:57] LABS: ALBUMIN 3.5 g/dL (3.2-5.5); ALBUMIN/GLOBULIN RATIO 1.2 (1.0-2.2); BILIRUBIN,TOTAL 0.4 mg/dL (0.2-1.0); TOTAL PROTEIN 6.5 g/dL (6.7-8.2)
[2017-10-18 01:05] LABS: CALCIUM 9.5 mg/dL (8.5-10.3)
[2017-10-18 01:19] VITALS: BP 146/84
== END 2017-10-18 01:19 | disposition home or self-care (01) ==
LOC: EDUNIT# → ED 22:51
DX: S42.494A Other nondisplaced fracture of lower end of right humerus, initial encounter for closed fracture (principal); S00.03XA Contusion of scalp, initial encounter; W18.30XA Fall on same level, unspecified, initial encounter; Y92.009 Unspecified place in unspecified non-institutional (private) residence as the place of occurrence of the external cause; S42.201D Unspecified fracture of upper end of right humerus, subsequent encounter for fracture with routine healing; D64.9 Anemia, unspecified; I10 Essential (primary) hypertension; J45.909 Unspecified asthma, uncomplicated; G40.909 Epilepsy, unspecified, not intractable, without status epilepticus; F17.200 Nicotine dependence, unspecified, uncomplicated; Z86.73 Personal history of transient ischemic attack (TIA), and cerebral infarction without residual deficits; Z79.82 Long term (current) use of aspirin
CPT/HCPCS: 24535; 70450; 72125; 73060; 73502; 80053; 83690; 85025; 96374; 99283; 99284; J1170; 36415

== ENCOUNTER 2017-10-18 18:49 | Outpatient (CLI) | payer MEDICARE, OTHER | END 2017-10-18 18:50 | disposition critical access hospital (66) | LOC: EMS 18:49 | PROVIDERS: ATTEND Surgery | DX: M79.601 Pain in right arm (principal); M25.551 Pain in right hip; W18.30XA Fall on same level, unspecified, initial encounter; Y93.01 Activity, walking, marching and hiking; Y92.002 Bathroom of unspecified non-institutional (private) residence as the place of occurrence of the external cause | CPT/HCPCS: A0425; A0429 ==

== ENCOUNTER 2017-10-18 19:16 | Emergency (ER) | payer MEDICARE, OTHER ==
--- NOTE | 2017-10-18 20:10 | ED Physician Documentation ---
PD HPI UPPER EXT INJURY - Stated complaint Stated Complaint: GLF - RIGHT ARM INJURY - Chief complaint Chief Complaint: Trauma Ext - History obtained from History obtained from: Family - History of Present Illness Location: Right, Arm Type of injury: Fall (she was in bathroom and turned, lost balance and fell, thinks she might have struck her head. Did land to her arm, which has recent fracture and it is hurting more than it was. Has deformity of the area that was not present prior to the fall. has some pain to the right hip as well.) Where injury occurred: Home Timing - details: Abrupt onset, Still present Improved by: Rest Worsened by: Moving, Palpating Associated symptoms: Swelling Recently seen: Emergency Dept (seen yesterday for a fall as well, without displacement of the recent fracture.) Review of Systems Constitutional: denies: Fever Nose: denies: Rhinorrhea / runny nose, Congestion Throat: denies: Sore throat Respiratory: denies: Cough GI: denies: Nausea, Vomiting, Diarrhea Skin: denies: Abrasion (s), Laceration (s) Neurologic: denies: Headache PD PAST MEDICAL HISTORY - Past Medical History Past Medical History: Yes Cardiovascular: Hypertension Respiratory: Asthma Neuro: CVA, Seizure disorder Endocrine/Autoimmune: None GI: GERD 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: 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 : Other HEENT: Chronic vision loss Psych:  Musculoskeletal: Other Derm: None - Past Surgical History Past Surgical History: Yes General: Bowel surgery Ortho: Spine surgery, 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 /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: Hysterectomy Derm: Other - Present Medications Home Medications: Ambulatory Orders Medication Instructions Recorded Confirmed Felbamate [Felbatol] 800 mg PO BID 11/04/12 10/17/17 Polyethylene Glycol 3350 [Miralax] 17 gm PO BID PRN #1 bottle 03/27/13 10/17/17 Bisacodyl [Dulcolax] 10 mg PO BID 11/02/13 10/17/17 Clonazepam 2 mg PO QPM 11/02/13 10/17/17 Esomeprazole Magnesium [Nexium] 40 mg PO BID 11/02/13 10/17/17 Ethosuximide 250 mg PO BID 11/02/13 10/17/17 FLUoxetine [PROzac] 40 mg PO DAILY 11/02/13 10/17/17 Folic Acid 0.4 mg PO DAILY 11/02/13 10/17/17 fentaNYL 25 MCG PATCH [Duragesic] 12 mcg TOP Q72H 11/02/13 10/17/17 Acetaminophen 500 mg PO Q4H 10/19/15 10/17/17 Metoprolol Succinate [Toprol Xl] 25 mg PO ONCE 11/06/15 10/17/17 Triamterene/Hydrochlorothiazid 1 mg PO DAILY 11/06/15 10/17/17 [Triamterene-Hctz 37.5-25 mg Cp] Acyclovir 200 mg PO DAILY 03/05/17 10/17/17 Aspirin 81 mg PO DAILY 03/05/17 10/17/17 Simvastatin 10 mg PO DAILY 03/05/17 10/17/17 Oxycodone HCl/Acetaminophen 1 each PO Q6H PRN #20 tablet 03/08/17 10/17/17 [Percocet 5-325 mg Tablet] - Allergies Allergies/Adverse Reactions: Allergies Allergy/AdvReac Type Severity Reaction Status Date / Time divalproex sodium AdvReac Severe Rash Verified 10/18/17 19:23 [From Depakote] lithium [[place]] AdvReac Severe Anxiety Verified 10/18/17 19:23 adhesive AdvReac Intermediate Itching Verified 10/18/17 19:23 buprenorphine [From Butrans] AdvReac Intermediate Nausea Verified 10/18/17 19:23 morphine AdvReac Intermediate Itching Verified 10/18/17 19:23 nalbuphine HCl * AdvReac Intermediate Itching Verified 10/18/17 19:23 [From Nubain] pregabalin [From Lyrica] AdvReac Intermediate Anxiety Verified 10/18/17 19:23 buprenorphine HCl * AdvReac Unknown Unknown Verified 10/18/17 19:23 [From Suboxone] carbamazepine [From Tegretol] AdvReac Unknown Unknown Verified 10/18/17 19:23 clobazam [From Onfi] AdvReac Unknown Itching Verified 10/18/17 19:23 naloxone HCl * AdvReac Unknown Unknown Verified 10/18/17 19:23 [From Suboxone] saboxone AdvReac Intermediate Nausea Uncoded 10/18/17 19:23 tape AdvReac Intermediate Itching Uncoded 10/18/17 19:23 - Social History Does the pt smoke?: Yes Smoking Status: Current every day smoker Does the pt drink ETOH?: No Does the pt have substance abuse?: No - Immunizations Immunizations are current?: No Immunizations: TDAP >10years/unknown - POLST Patient has POLST: No PD ED PE NORMAL - Vitals Vital signs reviewed: Yes - General General: No acute distress, Well developed/nourished, Other (alert and conversant, pleasant, oriented to person. ) - HEENT HEENT: Atraumatic - Neck Neck: Supple, no meningeal sign, No bony TTP, No adenopathy - Cardiac Cardiac: RRR, No murmur - Respiratory Respiratory: Clear bilaterally, Other (no chestwall tenderness. ) - Abdomen Abdomen: Soft, Non tender - Back Back: No spinal TTP - Derm Derm: Normal color, Warm and dry - Extremities Extremities: Other (right lower upper arm with obvious deformity and swelling. Good pulses and cap refill distally. Right hip with some tenderness laterally. Good ROM of the hip joint itself. ) - Neuro Neuro: No motor deficit, No sensory deficit Eye Opening: Spontaneous Motor: Obeys Commands Verbal: Oriented GCS Score: 15 - Psych Psych: Normal mood Results - Vitals Vitals: Vital Signs - 24 hr 10/18/17 10/18/17 10/18/17 19:19 22:11 23:29 Temperature 36.6 C 36.4 C L 36.1 C L Heart Rate 78 71 72 Respiratory 18 16 18 Rate Blood Pressure 150/87 H 147/90 H 117/75 O2 Saturation 98 97 97 Oxygen O2 Source [With Activity] Room air O2 Source Room air - Rads (name of study) right hip Radiology: Prelim report reviewed, EMP read contemporaneously (no fractures) right humerus Radiology: Prelim report reviewed, EMP read contemporaneously (now displacement of the previously fractures distal humerus. 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 I did this and he returned info through [facility] that reduction seemed okay and requested repeat films. To have patient seen in Clinic Friday. ) Departure - Departure Disposition: 01 Home, Self Care Clinical Impression: Humerus distal fracture Qualifiers: Encounter type: subsequent encounter Fracture type: closed Fracture morphology : other fracture Fracture alignment: nondisplaced Laterality: right Fracture healing: with routine healing Qualified Code(s): S42.494D - Other nondisplaced fracture of lower end of right humerus, subsequent encounter for fracture with routine healing Accidental fall Qualifiers: Encounter type: initial encounter Qualified Code(s): W19.XXXA - Unspecified fall, initial encounter Condition: Stable Record reviewed to determine appropriate education?: Yes Follow-Up: PAOLO SOUZA MD [Primary Care Provider] - Steve Rincon MD [Physician No Access] - Comments: Keep the splint on and use a sling. Continue regular medications. Follow-up with Dr. Og Harris on Friday as planned. Discharge Date/Time: 10/18/17 23:34
--- NOTE | 2017-10-18 20:24 | XRAY Preliminary Report ---
Exam: XR HIP W/PELVIS 2-3V RT IMPRESSION: No evidence of fracture or dislocation. [facility] SITE ID: [id number]
--- NOTE | 2017-10-18 20:25 | XRAY Report ---
EXAM: RIGHT HIP AND PELVIS RADIOGRAPHY EXAM DATE: 10/18/2017 07:40 PM. HISTORY: Fall, right hip pain. COMPARISONS: None. TECHNIQUE: 1 view of the pelvis and 1 view of the hip. FINDINGS: Bones: Normal. No fracture or bone lesion. Joints: The bilateral hip, pubis symphysis, and sacroiliac joints are preserved. Soft Tissues: Multiple phleboliths within the pelvis. IMPRESSION: No evidence of fracture or dislocation. [facility] Referring Provider Line: [phone] SITE ID: [id number]
--- NOTE | 2017-10-18 20:28 | XRAY Report ---
EXAM: RIGHT HUMERUS RADIOGRAPHY EXAM DATE: 10/18/2017 07:40 PM. CLINICAL HISTORY: Fall, right humerus pain. COMPARISON: Right humerus 10/17/2017. TECHNIQUE: 2 views. FINDINGS: Bones: Previously noted hairline fracture at the distal diaphysis of the humerus has now converted to a complete displaced fracture. Distal fragment is displaced medially 6 mm with lateral angulation of the distal fracture fragment. Again note is made of a proximal humeral diaphyseal fracture with lateral plate and screw fixation. F racture plane is still visible although alignment of the proximal humerus remains near-anatomic. Joints: No elbow or shoulder dislocation in these views. Soft Tissues: Distal soft tissue swelling. IMPRESSION: 1. Conversion of the previously noted hairline fracture to a displaced distal humeral diaphyseal frac ture now with medial displacement and lateral angulation of the distal fracture fragment. 2. Status post open reduction internal fixation of the proximal humerus with near-anatomic alignment of the proximal humerus. [facility] Referring Provider Line: [phone] SITE ID: [id number]
[2017-10-18] MEDS ORDERED: HYDROmorphone 1 MG/ML CARPUJECT IVP STA (21:00)
[2017-10-18] MEDS ORDERED: KETOROLAC 60 MG/2 ML VIAL IVP STA (21:00)
--- NOTE | 2017-10-18 22:31 | XRAY Report ---
EXAM: RIGHT HUMERUS RADIOGRAPHY EXAM DATE: 10/18/2017 09:50 PM. CLINICAL HISTORY: Post reduction. COMPARISON: 10/18/2017. TECHNIQUE: 2 views. FINDINGS: Interval placement overlying cast status post reduction mid to distal humerus fracture. Ali gnment is improved. No new abnormalities are seen. IMPRESSION: Interval reduction right mid to distal humerus fracture. Improved alignment. No new abnor malities are seen. [facility] Referring Provider Line: [phone] SITE ID: [id number]
[2017-10-18 23:31] VITALS: BP 117/75
== END 2017-10-18 23:34 | disposition home or self-care (01) ==
LOC: EDUNIT# → ED 19:16
DX: S42.494A Other nondisplaced fracture of lower end of right humerus, initial encounter for closed fracture (principal); W18.30XA Fall on same level, unspecified, initial encounter; Y92.002 Bathroom of unspecified non-institutional (private) residence as the place of occurrence of the external cause; I10 Essential (primary) hypertension; F17.200 Nicotine dependence, unspecified, uncomplicated; Z79.82 Long term (current) use of aspirin
CPT/HCPCS: 99284

== ENCOUNTER 2018-10-24 14:29 | Outpatient (CLI) | payer MEDICARE, OTHER | END 2018-10-24 14:30 | disposition critical access hospital (66) | LOC: EMS 14:29 | PROVIDERS: ATTEND Surgery | DX: M54.5 Low back pain (principal); M25.551 Pain in right hip; M79.629 Pain in unspecified upper arm; W06.XXXA Fall from bed, initial encounter; Y92.003 Bedroom of unspecified non-institutional (private) residence as the place of occurrence of the external cause | CPT/HCPCS: A0425; A0429 ==

== ENCOUNTER 2018-10-24 14:49 | Emergency (ER) | payer MEDICARE, OTHER ==
[2018-10-24] MEDS ORDERED: HYDROcod/ACETAM 5/325 MG TABLET PO STA (15:05)
--- NOTE | 2018-10-24 15:08 | ED Physician Documentation ---
PD HPI LOWER EXT INJURY - Stated complaint Stated Complaint: GLF - Chief complaint Chief Complaint: Trauma Ext - History obtained from History obtained from: Patient, EMS - History of Present Illness PD HPI LOW EXT INJURY LOCATION: Other (This is a 68-year-old woman with history of seizure disorder, spinal cord injury. Sounds like at her baseline she is minimally ambulatory and mostly bedbound. She presents by ambulance for a fall at home. Sounds like she got caught up in a blanket that was on the floor and fell. She complains of back and leg pain. Really more the back. She denies head or neck injury. She says her last seizure was many years ago. She is a somewhat unreliable historian, no the date for a year, and is a vague historian and somewhat tangential but per the paramedics she is at her baseline according to the who is not here on initial evaluation but is on his way I am told.) Review of Systems Unable to obtain: Confused PD PAST MEDICAL HISTORY - Past Medical History Cardiovascular: Hypertension Respiratory: Asthma Endocrine/Autoimmune: None GI: GERD INSOLE REINFORCER: 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 : Other HEENT: Chronic vision loss Psych:  Musculoskeletal: Other Derm: None - Past Surgical History Past Surgical History: Yes General: Bowel surgery Ortho: Spine surgery, Other /INSOLE REINFORCER: Hysterectomy Derm: Other - Present Medications Home Medications: Ambulatory Orders Medication Instructions Recorded Confirmed Felbamate [Felbatol] 800 mg PO BID 11/04/12 10/17/17 Polyethylene Glycol 3350 [Miralax] 17 gm PO BID PRN #1 bottle 03/27/13 10/17/17 Bisacodyl [Dulcolax] 10 mg PO BID 11/02/13 10/17/17 Clonazepam 2 mg PO QPM 11/02/13 10/17/17 Esomeprazole Magnesium [Nexium] 40 mg PO BID 11/02/13 10/17/17 Ethosuximide 250 mg PO BID 11/02/13 10/17/17 FLUoxetine [PROzac] 40 mg PO DAILY 11/02/13 10/17/17 Folic Acid 0.4 mg PO DAILY 11/02/13 10/17/17 fentaNYL 25 MCG PATCH [Duragesic] 12 mcg TOP Q72H 11/02/13 10/17/17 Acetaminophen 500 mg PO Q4H 10/19/15 10/17/17 Metoprolol Succinate [Toprol Xl] 25 mg PO ONCE 11/06/15 10/17/17 Triamterene/Hydrochlorothiazid 1 mg PO DAILY 11/06/15 10/17/17 [Triamterene-Hctz 37.5-25 mg Cp] Acyclovir 200 mg PO DAILY 03/05/17 10/17/17 Aspirin 81 mg PO DAILY 03/05/17 10/17/17 Simvastatin 10 mg PO DAILY 03/05/17 10/17/17 Oxycodone HCl/Acetaminophen 1 each PO Q6H PRN #20 tablet 03/08/17 10/17/17 [Percocet 5-325 mg Tablet] - Allergies Allergies/Adverse Reactions: Allergies Allergy/AdvReac Type Severity Reaction Status Date / Time divalproex sodium AdvReac Severe Rash Verified 10/18/17 19:23 [From Depakote] lithium [[place]] AdvReac Severe Anxiety Verified 10/18/17 19:23 adhesive AdvReac Intermediate Itching Verified 10/18/17 19:23 buprenorphine [From Butrans] AdvReac Intermediate Nausea Verified 10/18/17 19:23 morphine AdvReac Intermediate Itching Verified 10/18/17 19:23 nalbuphine HCl * AdvReac Intermediate Itching Verified 10/18/17 19:23 [From Nubain] pregabalin [From Lyrica] AdvReac Intermediate Anxiety Verified 10/18/17 19:23 buprenorphine HCl * AdvReac Unknown Unknown Verified 10/18/17 19:23 [From Suboxone] carbamazepine [From Tegretol] AdvReac Unknown Unknown Verified 10/18/17 19:23 clobazam [From Onfi] AdvReac Unknown Itching Verified 10/18/17 19:23 naloxone HCl * AdvReac Unknown Unknown Verified 10/18/17 19:23 [From Suboxone] saboxone AdvReac Intermediate Nausea Uncoded 10/18/17 19:23 tape AdvReac Intermediate Itching Uncoded 10/18/17 19:23 - Social History Does the pt smoke?: Yes Smoking Status: Current every day smoker Does the pt drink ETOH?: No Does the pt have substance abuse?: No - Immunizations Immunizations are current?: No Immunizations: TDAP >10years/unknown - POLST Patient has POLST: No PD ED PE NORMAL - Vitals Vital signs reviewed: Yes - General General: Other (She is alert and oriented to person and place but not time, she is a mediocre historian for events.) - HEENT HEENT: PERRL, EOMI, Ears normal - Neck Neck: Supple, no meningeal sign, No bony TTP - Cardiac Cardiac: RRR, No murmur - Respiratory Respiratory: No respiratory distress, Clear bilaterally - Abdomen Abdomen: Soft, Non tender - Back Back: Other (Mild tenderness of the lumbar spine) - Extremities Extremities: Other (She is holding both hips flexed, but she can lift both legs off the bed. Really no tenderness of either hip, or the knees or ankles. The right upper extremity was also examined because she was having pain there, she has had extensive surgeries there with extensive surgical scars but there is no tenderness and she is able to lift them off the bed.) - Neuro Neuro: bander hand 2-12 intact, No motor deficit, No sensory deficit, Normal speech Eye Opening: Spontaneous Motor: Obeys Commands Verbal: Confused GCS Score: 14 Results - Vitals Vitals: Vital Signs - 24 hr 10/24/18 10/24/18 14:50 15:26 Heart Rate 102 H 85 Respiratory 14 12 Rate Blood Pressure 119/117 H 190/98 H O2 Saturation 99 98 Oxygen O2 Source [With Activity] Room air O2 Source Room air - Rads (name of study) B hip XR Radiology: EMP read contemporaneously (Acute right sided femoral neck fracture with superior displacement, old fracture deformity involving the left femoral shaft.) R humerus Radiology: EMP read contemporaneously (Old fracture deformity of the humerus post fixation with lucency about the humeral neck, after discussion with the and reviewing x-rays on his phone this represents a chronic nonunion.) L spine CT Radiology: EMP read contemporaneously (Mild S-shaped scoliosis with post fusion changes at L2-L3, no acute fracture noted, mild multilevel osteoarthritic changes present.) Procedures - General procedure General procedure: She was difficult for IV access, the nurses tried and failed. I personally placed a long 22-gauge IV in the left deep brachial vein after ChloraPrep using real-time ultrasound guidance that flushed and enriqueta well. PD MEDICAL DECISION MAKING - ED course ED course: 68-year-old woman with frequent falls and a nonunion of the right upper extremities presents after a ground-level fall complaining of hip and back pain. Imaging shows a right subcapital impacted hip fracture. 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 When I pointed out that she does not know what year it is, he says that her baseline, she just does not care. Imaging showed this subcapital hip fracture, she has a history of nonunion of the right upper extremity. She is actually being referred to a genetic counselor I guess because of some issues with bone healing and a concern for some sort of bone healing problem at the [facility]. Because of that I offered potential transfer to [facility] where she has had a prior orthopedic care and the liked that idea and she was accepted by Dr. Abdi there at 4 PM and cobras were completed. She is stable for transfer to a higher level of care. Departure - Departure Disposition: 02 Transfer Acute Care Hosp Clinical Impression: Subcapital fracture of right hip Qualifiers: Encounter type: initial encounter Fracture type: closed Qualified Code(s): S72.011A - Unspecified intracapsular fracture of right femur, initial encounter for closed fracture Condition: Serious
--- NOTE | 2018-10-24 15:45 | XRAY Report ---
Reason: arm inj Procedure Date: 10/24/2018 Accession Number: [id number] / [id number] Procedure: XR - Humerus RT CPT Code: FULL RESULT: EXAM: RIGHT HUMERUS RADIOGRAPHY EXAM DATE: 10/24/2018 03:27 PM. CLINICAL HISTORY: Arm pain post fall. COMPARISON: HUMERUS RT 10/18/2017 9:50 PM HUMERUS RT 10/18/2017 7:39 PM. TECHNIQUE: 2 views. FINDINGS: Bones: There is old fracture deformity involving the humerus, post plate and screw placement. There is increased lucency noted about the humeral neck region. This likely represents acute fracture. Joints: Moderate osteoarthritic changes seen. No evidence of dislocation present. Soft Tissues: Mild soft tissue swelling noted. IMPRESSION: Old fracture deformity involving the humerus, post ORIF, with increased lucency about the humeral neck region which may represent acute fracture. Moderate osteoarthritic changes otherwise seen. RADIA
--- NOTE | 2018-10-24 15:49 | XRAY Report ---
Reason: fall, back and leg pain Procedure Date: 10/24/2018 Accession Number: [id number] / [id number] Procedure: XR - Hips 3-4V BILAT CPT Code: FULL RESULT: EXAM: BILATERAL HIP RADIOGRAPHY EXAM DATE: 10/24/2018 03:29 PM. CLINICAL HISTORY: Fall, back and leg pain. COMPARISON: HIP W/PELVIS 2-3V RT 10/18/2017 7:39 PM. TECHNIQUE: 2 views. FINDINGS: Bones: There is a right-sided femoral neck fracture, with slight superior displacement. There is old fracture deformity involving the left femoral shaft. Joints: Mild osteoarthritic changes otherwise seen. SI joints are grossly unremarkable. Soft Tissues: Normal. No soft tissue swelling. IMPRESSION: 1. Acute right-sided femoral neck fracture with superior displacement. 2. Old fracture deformity involving left femoral shaft. RADIA
--- NOTE | 2018-10-24 15:56 | CT Report ---
Reason: fall, back and leg pain Procedure Date: 10/24/2018 Accession Number: [id number] / [id number] Procedure: CT - LUMBAR SPINE WO CPT Code: FULL RESULT: EXAM: CT LUMBAR SPINE WITHOUT CONTRAST EXAM DATE: 10/24/2018 03:38 PM. CLINICAL HISTORY: Fall, back and leg pain. COMPARISONS: LUMBAR SPINE W/O 11/02/2013 8:46 PM. TECHNIQUE: Thin-section axial images were acquired of the lumbar spine from T12 to S1 without contrast. Post-processing: Coronal and sagittal reformats. Other: None. In accordance with CT protocol optimization, one or more of the following dose reduction techniques were utilized for this exam: automated exposure control, adjustment of mA and/or KV based on patient size, or use of iterative reconstructive technique. FINDINGS: Alignment: There is mild S-shaped scoliosis, grossly unchanged. Bones: Five [id number] lumbar vertebral bodies are present. No fractures or bone lesions. Patient is status post posterior fusion of L2/L3, with additional vertebroplasty changes. Disk Levels/Facets: Mild multilevel osteoarthritic changes present. Musculature: Normal. No fatty atrophy. Other: Grossly unchanged, with right renal cyst present. Status post bowel surgery. IMPRESSION: 1. Mild S-shaped scoliosis, with post-fusion changes at L2/L3. No acute fracture noted. Mild multilevel osteoarthritic changes otherwise present. RADIA
[2018-10-24] MEDS ORDERED: fentaNYL 100 MCG/2 ML VIAL IVP STA ×2 (16:15→17:16)
[2018-10-24 16:35] LABS: INR 1.1 (0.8-1.2)
[2018-10-24 16:39] LABS: BASOPHILS % (AUTO) 0.5 %; EOSINOPHILS # (AUTO) 0.1 10^3/uL (0.0-0.7); EOSINOPHILS % (AUTO) 2.4 %; LYMPHOCYTES % (AUTO) 17.6 %; MEAN CORPUSCULAR HEMOGLOBIN 34.8 pg (27.0-31.0); MEAN CORPUSCULAR HGB CONC 34.4 g/dL (32.0-36.0); MEAN CORPUSCULAR VOLUME 101.1 fL (81.0-99.0); MEAN PLATELET VOLUME 7.7 fL (7.9-10.8); MONOCYTES # (AUTO) 0.2 10^3/uL (0.0-1.0); MONOCYTES % (AUTO) 3.5 %; NEUTROPHILS # (AUTO) 4.3 10^3/uL (1.5-6.6); PLT - PLATELET COUNT 168 10^3/uL (130-450); RED BLOOD COUNT 4.61 10^6/uL (4.20-5.40); RED CELL DISTRIBUTION WIDTH 12.7 % (12.0-15.0); WHITE BLOOD COUNT 5.7 x10^3/uL (4.8-10.8)
[2018-10-24 16:43] LABS: ALBUMIN 4.4 g/dL (3.2-5.5); ALBUMIN/GLOBULIN RATIO 1.4 (1.0-2.2); BILIRUBIN,TOTAL 0.9 mg/dL (0.2-1.0); CALCIUM 10.9 mg/dL (8.5-10.3); CREATININE 0.9 mg/dL (0.4-1.0); TOTAL PROTEIN 7.5 g/dL (6.7-8.2)
[2018-10-24 17:24] VITALS: BP 169/92
== END 2018-10-24 18:15 | disposition short-term general hospital (02) ==
LOC: EDUNIT# → ED 14:49
DX: S72.011A Unspecified intracapsular fracture of right femur, initial encounter for closed fracture (principal); W23.0XXA Caught, crushed, jammed, or pinched between moving objects, initial encounter; W18.30XA Fall on same level, unspecified, initial encounter; I10 Essential (primary) hypertension; Z91.81 History of falling; Z85.43 Personal history of malignant neoplasm of ovary; Z90.710 Acquired absence of both cervix and uterus; F17.200 Nicotine dependence, unspecified, uncomplicated; Z86.69 Personal history of other diseases of the nervous system and sense organs; Z87.81 Personal history of (healed) traumatic fracture
CPT/HCPCS: 36415; 72131; 73060; 73522; 80053; 83690; 85025; 85610; 86850; 86900; 86901; 96374; 96376; 99284; A9270

== ENCOUNTER 2019-04-25 23:07 | Emergency (ER) | payer MEDICARE, OTHER ==
--- NOTE | 2019-04-26 00:32 | ED Physician Documentation ---
PD HPI ABD PAIN - Stated complaint Stated Complaint: CONSTIPATION 1 WEEK - Chief complaint Chief Complaint: Abd Pain - History obtained from History obtained from: Patient - History of Present Illness Timing - onset: How many weeks ago (1) Timing - duration: Weeks (1) Timing - details: Gradual onset Quality: Cramping Location: All over / everywhere Recently seen: Not recently seen - Additional information Additional information: c/o constipation x 1 week. urge to defecate but unable to do so; increasing abdominal distention and cramping pain. has been taking dulcolax but has not tried any other medications or remedies for this Review of Systems Constitutional: denies: Fever, Chills, Sweats GI: reports: Abdominal Pain, Constipation. 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 : Other HEENT: Chronic vision loss Psych:  Musculoskeletal: Other Derm: None - Past Surgical History Past Surgical History: Yes General: Bowel surgery Ortho: Spine surgery, Other /OPERATING MANAGER: Hysterectomy, Oophrectomy Derm: Other - Present Medications Home Medications: Ambulatory Orders Medication Instructions Recorded Confirmed Felbamate [Felbatol] 800 mg PO BID 11/04/12 10/17/17 Polyethylene Glycol 3350 [Miralax] 17 gm PO BID PRN #1 bottle 03/27/13 10/17/17 Bisacodyl [Dulcolax] 10 mg PO BID 11/02/13 10/17/17 Clonazepam 2 mg PO QPM 11/02/13 10/17/17 Esomeprazole Magnesium [Nexium] 40 mg PO BID 11/02/13 10/17/17 Ethosuximide 250 mg PO BID 11/02/13 10/17/17 FLUoxetine [PROzac] 40 mg PO DAILY 11/02/13 10/17/17 Folic Acid 0.4 mg PO DAILY 11/02/13 10/17/17 fentaNYL 25 MCG PATCH [Duragesic] 12 mcg TOP Q72H 11/02/13 10/17/17 Acetaminophen 500 mg PO Q4H 10/19/15 10/17/17 Metoprolol Succinate [Toprol Xl] 25 mg PO ONCE 11/06/15 10/17/17 Triamterene/Hydrochlorothiazid 1 mg PO DAILY 11/06/15 10/17/17 [Triamterene-Hctz 37.5-25 mg Cp] Acyclovir 200 mg PO DAILY 03/05/17 10/17/17 Aspirin 81 mg PO DAILY 03/05/17 10/17/17 Simvastatin 10 mg PO DAILY 03/05/17 10/17/17 Oxycodone HCl/Acetaminophen 1 each PO Q6H PRN #20 tablet 03/08/17 10/17/17 [Percocet 5-325 mg Tablet] - Allergies Allergies/Adverse Reactions: Allergies Allergy/AdvReac Type Severity Reaction Status Date / Time divalproex sodium AdvReac Severe Rash Verified 04/25/19 23:15 [From Depakote] lithium [[place]] AdvReac Severe Anxiety Verified 04/25/19 23:15 adhesive AdvReac Intermediate Itching Verified 04/25/19 23:15 buprenorphine [From Butrans] AdvReac Intermediate Nausea Verified 04/25/19 23:15 morphine AdvReac Intermediate Itching Verified 04/25/19 23:15 nalbuphine HCl * AdvReac Intermediate Itching Verified 04/25/19 23:15 [From Nubain] pregabalin [From Lyrica] AdvReac Intermediate Anxiety Verified 04/25/19 23:15 buprenorphine HCl * AdvReac Unknown Unknown Verified 04/25/19 23:15 [From Suboxone] carbamazepine [From Tegretol] AdvReac Unknown Unknown Verified 04/25/19 23:15 clobazam [From Onfi] AdvReac Unknown Itching Verified 04/25/19 23:15 naloxone HCl * AdvReac Unknown Unknown Verified 04/25/19 23:15 [From Suboxone] saboxone AdvReac Intermediate Nausea Uncoded 10/18/17 19:23 tape AdvReac Intermediate Itching Uncoded 10/18/17 19:23 - Social History Does the pt smoke?: Yes Smoking Status: Former smoker Does the pt drink ETOH?: No Does the pt have substance abuse?: No - Immunizations Immunizations are current?: No Immunizations: TDAP >10years/unknown - POLST Patient has POLST: No PD ED PE NORMAL - Vitals Vital signs reviewed: Yes - General General: Alert and oriented X 3, No acute distress, Well developed/nourished - Abdomen Abdomen: Normal bowel sounds, Soft, Non tender Results - Vitals Vitals: Vital Signs - 24 hr 04/25/19 04/26/19 04/26/19 23:11 01:14 04:39 Temperature 36.8 C Heart Rate 105 H 102 H 92 Respiratory 14 16 16 Rate Blood Pressure 143/68 H 145/70 H 140/83 H O2 Saturation 100 94 99 Oxygen O2 Source [With Activity] Room air O2 Source Room air - Rads (name of study) acute abd. series (xrays) Radiology: Prelim report reviewed, See rad report PD MEDICAL DECISION MAKING - ED course Complexity details: reviewed results, re-evaluated patient, considered differential, d/w patient, d/w family ED course: given soap-suds enema with good results; had large BM and relief of symptoms. says she was recently prescribed miralax but hasn't started taking this yet. I encouraged her to start taking this as prescribed today Departure - Departure Disposition: 01 Home, Self Care Clinical Impression: Constipation Condition: Good Instructions: ED Constipation Follow-Up: PAOLO SOUZA MD [Primary Care Provider] - Discharge Date/Time: 04/26/19 04:49
--- NOTE | 2019-04-26 02:08 | XRAY Report ---
Reason: abdominal pain, possible constipation Procedure Date: 04/26/2019 Accession Number: [id number] / [id number] Procedure: XR - Abdomen Acute CPT Code: FULL RESULT: EXAM: ABDOMINAL SERIES AND PA CHEST EXAM DATE: 04/26/2019 01:51 AM. CLINICAL HISTORY: Abdominal pain, possible constipation. COMPARISON: CHEST 2 VIEW PA/LAT 06/21/2016 5:24 PM. TECHNIQUE: 3 views abdomen and 1 view chest. FINDINGS: CHEST: Lungs/Pleura: No focal opacities. No effusion or pneumothorax. Mediastinum: Within exam limitations, cardiomediastinal contour is normal. ABDOMEN: Bowel Gas Pattern: Large amount of stool and air in colon. No definite dilated air-filled small bowel loops evident. Free Air: None. Other: Postsurgical changes of right femur, cervical spine and lumbar spine. IMPRESSION: Large amount of stool and air in colon. Correlate for constipation. RADIA
[2019-04-26] MEDS ORDERED: SOAP SUDS ENEMA 1 EACH RC STA (02:54)
[2019-04-26 04:40] VITALS: BP 140/83
== END 2019-04-26 04:49 | disposition home or self-care (01) ==
LOC: ED 23:07
DX: K59.00 Constipation, unspecified (principal); I10 Essential (primary) hypertension; Z79.82 Long term (current) use of aspirin; Z87.891 Personal history of nicotine dependence
CPT/HCPCS: 74022; 99282; 99284; A9270

== ENCOUNTER 2019-06-17 06:33 | Day surgery (SDC) | payer MEDICARE, OTHER ==
[~2019-06-17 06:33] MED LIST: CYCLOPENTOLATE 1% OPHTH DROPS 2 ML ONE; KETOROLAC 0.45% OPHTH DROPS ONE; PHENYLEPHRINE 2.5% OPHTH 2 ML DROPS ONE; PROPARACAINE 0.5% OPHTH DROPS 15 ML ONE
[2019-06-17] MEDS ORDERED: LACTATED RINGERS 500 ML IV ONE (06:36)
[2019-06-17] MEDS ORDERED: CYCLOPENTOLATE 1% OPHTH DROPS 2 ML LEFTEYE ONE (07:05)
[2019-06-17] MEDS ORDERED: PHENYLEPHRINE 2.5% OPHTH 2 ML DROPS LEFTEYE ONE (07:05)
[2019-06-17] MEDS ORDERED: KETOROLAC 0.45% OPHTH DROPS LEFTEYE ONE (07:05)
[2019-06-17] MEDS ORDERED: PROPARACAINE 0.5% OPHTH DROPS 15 ML LEFTEYE ONE (07:05)
[2019-06-17] MEDS ORDERED: BRIMONIDINE 0.2% OPHTH DROPS 5 ML ONE ×2 (07:09→07:10)
[2019-06-17] MEDS ORDERED: EPINEPHrine 1 MG/ML AMP ONE ×2 (07:09→07:10)
[2019-06-17] MEDS ORDERED: TRIAMCIN/MOXIFLOX OPHTHALMIC 0.6 ML VIAL IO ONE ×2 (07:10→07:37)
[2019-06-17] MEDS ORDERED: TIMOLOL 0.5% OPHTH DROPS ONE (07:11)
[2019-06-17] MEDS ORDERED: VANCOMYCIN OPHTHALMI 8MG/0.8ML 8 MG/0.8 ML SYRINGE IO ONE ×2 (07:11→07:38)
[2019-06-17] MEDS ORDERED: BSS/LIDOCAINE/EPINEPHRINE 1 ML SYRINGE ONE (07:11)
--- NOTE | 2019-06-17 07:20 | ANESTHESIA ---
Pre-Anesthesia VS, & Labs - Diagnosis L nuclear sclerotic cataract - Procedure L cataract extraction with IOL Height 5 ft 5 in Weight (kg) 50 kg Body Mass Index 17.4 - NPO >8 hours - Is Patient ?: No Home Medications and Allergies Home Medications: Ambulatory Orders Oxycodone HCl [Oxycontin] 10 mg PO DAILY 06/17/19 amLODIPine [Norvasc] 10 mg PO DAILY 06/17/19 traZODone [Desyrel] 50 mg PO DAILY 06/17/19 Felbamate [Felbatol] 800 mg PO BID 11/04/12 Bisacodyl [Dulcolax] 10 mg PO BID 11/02/13 Esomeprazole Magnesium [Nexium] 40 mg PO BID 11/02/13 Ethosuximide 250 mg PO BID 11/02/13 Acetaminophen 500 mg PO Q4H 10/19/15 Triamterene/Hydrochlorothiazid [Triamterene-Hctz 37.5-25 mg Cp] 1 mg PO DAILY 11/06/15 Acyclovir 200 mg PO DAILY 03/05/17 Oxycodone HCl [Oxycontin] 10 mg PO DAILY 06/17/19 amLODIPine [Norvasc] 10 mg PO DAILY 06/17/19 traZODone [Desyrel] 50 mg PO DAILY 06/17/19 Allergies/Adverse Reactions: Allergies Allergy/AdvReac Type Severity Reaction Status Date / Time divalproex sodium AdvReac Severe Rash Verified 04/25/19 23:15 [From Depakote] lithium [[place]] AdvReac Severe Anxiety Verified 04/25/19 23:15 adhesive AdvReac Intermediate Itching Verified 04/25/19 23:15 buprenorphine [From Butrans] AdvReac Intermediate Nausea Verified 04/25/19 23:15 morphine AdvReac Intermediate Itching Verified 04/25/19 23:15 nalbuphine HCl * AdvReac Intermediate Itching Verified 04/25/19 23:15 [From Nubain] pregabalin [From Lyrica] AdvReac Intermediate Anxiety Verified 04/25/19 23:15 buprenorphine HCl * AdvReac Unknown Unknown Verified 04/25/19 23:15 [From Suboxone] carbamazepine [From Tegretol] AdvReac Unknown Unknown Verified 04/25/19 23:15 clobazam [From Onfi] AdvReac Unknown Itching Verified 04/25/19 23:15 naloxone HCl * AdvReac Unknown Unknown Verified 04/25/19 23:15 [From Suboxone] saboxone AdvReac Intermediate Nausea Uncoded 10/18/17 19:23 tape AdvReac Intermediate Itching Uncoded 10/18/17 19:23 Anes History & Medical History - Anesthetic History Anesthesia Complications: reports: No previous complications Family history of Anesthesia Complications: Denies Family history of Malignant Hyperthermia: Denies - Medical History Cardiovascular: reports: Hypertension Pulmonary: reports: Asthma Gastrointestinal: reports: GERD Urinary: reports: Other Neuro: reports: Seizure disorder Musculoskeletal: reports: Other Endocrine/Autoimmune: reports: None Blood Disorders: reports: Anemia Skin: reports: None Smoking Status: Former smoker - Surgical History General: Bowel surgery Urologic: Nephrectomy Gynecologic: Hysterectomy, Oophrectomy Orthopedic: Spine surgery, Other Dermatologic: Other Exam General: Alert, Oriented x3, Cooperative Dental: WNL Mouth Openin Fingerbreadth Neck Mobility: Normal Mallampati classification: II Thyromental Distance: 4-6 cm Respiratory: Normal breath sounds, No respiratory distress Cardiovascular: Regular rate Neurological: Normal speech Mental/Cognitive Status: Alert/Oriented X3, Normal for patient Plan Anesthesia Type: MAC Consent for Procedure(s) Verified and Reviewed: Yes Code Status: Attempt Resuscitation ASA classification: 3-Severe systemic disease Is this case an emergency?: No
[2019-06-17] MEDS ORDERED: MIDAZOLAM 2 MG/2 ML VIAL IVP ONE (07:26)
[2019-06-17] MEDS ORDERED: EPINEPHrine 1 MG/ML AMP IVP ONE (07:36)
[2019-06-17] MEDS ORDERED: BRIMONIDINE 0.2% OPHTH DROPS 5 ML OPTH ONE (07:36)
[2019-06-17] MEDS ORDERED: CHONDR SULF/HYALURONATE SYRINGE IO ONE (07:37)
[2019-06-17] MEDS ORDERED: BSS/LIDOCAINE/EPINEPHRINE 1 ML SYRINGE IO ONE (07:37)
[2019-06-17] MEDS ORDERED: TIMOLOL 0.5% OPHTH DROPS OPTH ONE (07:37)
[2019-06-17 08:07] VITALS: BP 163/73
--- NOTE | 2019-06-17 09:10 | OPERATIVE REPORT ---
DATE OF SERVICE: 06/17/2019 Physician: Killian Lee MD PREOPERATIVE DIAGNOSIS: Complex, visually significant cataract, left eye. This was complex due to small pupil requiring pupil expansion with a Malyugin ring. This was her first cataract surgery. POSTOPERATIVE DIAGNOSIS: Complex, visually significant cataract, left eye. This was complex due to small pupil requiring pupil expansion with a Malyugin ring. This was her first cataract surgery. DESCRIPTION OF PROCEDURE: Phacoemulsification with posterior chamber intraocular lens implant, left eye. SURGEON: Killian Lee MD ANESTHESIA: Monitored anesthesia care. COMPLICATIONS: None. OPERATIVE INDICATIONS: This is a 68-year-old woman with progressive vision loss in the left eye due to 1+ nuclear sclerotic and 3+ posterior subcapsular cataract. Best corrected visual acuity was 20/125 in the left eye. Indications for surgery were overall decrease in vision, difficulty seeing words on a computer screen, difficulty reading, difficulty seeing words, closed caption or game scores on TV, difficulty seeing street signs, difficulty driving in low light or at night or in low light, difficulty driving at night because of headlights from other vehicles, difficulty with glare or bright lights in any situation, and difficulty tracking a golf ball. She was consented at length concerning risks and benefits of cataract surgery, after which she expressed a desire to proceed with surgery. OPERATIVE PROCEDURE: Patient was taken into OR #3 and placed under monitored anesthesia care. A surgical timeout was conducted confirming correct patient, correct procedure, and correct surgical site. She was given topical anesthesia, and then prepped and draped in the usual sterile fashion. The eye was entered at the 6 and 9 o'clock positions. Intracameral Shugarcaine was injected into the anterior chamber, followed by Viscoat. A Malyugin ring was then injected into the anterior chamber, and engaged the iris at 4 points to expand the pupil. A continuous-tear curvilinear capsulorrhexis was performed. The nucleus was hydrodissected and phacoemulsified. The cortex was evacuated using automated infusion and aspiration. Provisc was injected in the capsular bag, and a 19.0 diopter intraocular lens was inserted into the bag. The Malyugin ring was then disengaged from the pupil margin and removed from the anterior chamber. I and A was used to evacuate the viscoelastic materials. The eye was inflated to physiologic pressure using balanced salt solution and found to be watertight. Approximately 0.25 mL of a mixture of triamcinolone and moxifloxacin was injected transsclerally into the vitreous in the inferotemporal quadrant. An additional 0.55 mL of a mixture of triamcinolone, moxifloxacin and vancomycin was injected subconjunctivally in the superior quadrant for infection and inflammation prophylaxis. Wound integrity was checked with Weck-Sonia sponges. Patient was taken from the operating room in good condition and given postoperative instructions. TD: 06/17/2019 08:03 TIM
== END 2019-06-17 06:34 | disposition home or self-care (01) ==
LOC: SDS 06:33
PROVIDERS: ATTEND Ophthalmology
PROC: 08RK3JZ Replacement of Left Lens with Synthetic Substitute, Percutaneous Approach (ICD-10-PCS; principal; 2019-06-17 07:30)
DX: H25.042 Posterior subcapsular polar age-related cataract, left eye (principal); H57.89 Other specified disorders of eye and adnexa; I10 Essential (primary) hypertension; J45.909 Unspecified asthma, uncomplicated; G40.909 Epilepsy, unspecified, not intractable, without status epilepticus; R13.10 Dysphagia, unspecified; Z98.1 Arthrodesis status; Z79.899 Other long term (current) drug therapy; Z87.891 Personal history of nicotine dependence
CPT/HCPCS: 66982; A9270; J3490; V2632

== ENCOUNTER 2019-08-12 07:28 | Day surgery (SDC) | payer MEDICARE, OTHER ==
[2019-08-12] MEDS ORDERED: LACTATED RINGERS 500 ML IV ONE (07:32)
[2019-08-12] MEDS ORDERED: CYCLOPENTOLATE 1% OPHTH DROPS 2 ML RIGHTEYE ONE (07:50)
[2019-08-12] MEDS ORDERED: PHENYLEPHRINE 2.5% OPHTH 2 ML DROPS RIGHTEYE ONE (07:50)
[2019-08-12] MEDS ORDERED: KETOROLAC 0.45% OPHTH DROPS RIGHTEYE ONE (07:50)
[2019-08-12] MEDS ORDERED: BRIMONIDINE 0.2% OPHTH DROPS 5 ML OPTH ONE ×2 (07:50→09:04)
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
[2019-08-12] MEDS ORDERED: CHONDR SULF/HYALURONATE SYRINGE IO ONE (09:05)
[2019-08-12] MEDS ORDERED: EPINEPHrine 1 MG/ML AMP IVP ONE (09:05)
[2019-08-12] MEDS ORDERED: TIMOLOL 0.5% OPHTH DROPS OPTH ONE (09:05)
[2019-08-12] MEDS ORDERED: BSS/LIDOCAINE/EPINEPHRINE 1 ML SYRINGE IO ONE (09:06)
[2019-08-12] MEDS ORDERED: PROPARACAINE 0.5% OPHTH DROPS 15 ML RIGHTEYE ONE (09:06)
[2019-08-12] MEDS ORDERED: TRIAMCIN/MOXIFLOX OPHTHALMIC 0.6 ML VIAL IO ONE ×2 (09:07→14:49)
[2019-08-12] MEDS ORDERED: VANCOMYCIN OPHTHALMI 8MG/0.8ML 8 MG/0.8 ML SYRINGE IO ONE (09:07)
[2019-08-12 09:53] VITALS: BP 121/57
[2019-08-12] MEDS ORDERED: BRIMONIDINE 0.2% OPHTH DROPS 5 ML ONE (14:49)
[2019-08-12] MEDS ORDERED: TIMOLOL 0.5% OPHTH DROPS ONE (14:50)
[2019-08-12] MEDS ORDERED: BSS/LIDOCAINE/EPINEPHRINE 1 ML SYRINGE ONE (14:51)
--- NOTE | 2019-08-12 15:37 | OPERATIVE REPORT ---
DATE OF SERVICE: 08/12/2019 Physician: Killian Lee MD PREOPERATIVE DIAGNOSIS: Visually significant cataract, right eye. Cataract surgery was performed on the left eye on 06/17/2019. POSTOPERATIVE DIAGNOSIS: Visually significant cataract, right eye. Cataract surgery was performed on the left eye on 06/17/2019. PROCEDURE: Phacoemulsification with posterior chamber intraocular lens implant, right eye. SURGEON: Killian Lee MD ANESTHESIA: Monitored anesthesia care. COMPLICATIONS: None. OPERATIVE INDICATIONS: This is a 68-year-old woman with progressive vision loss in the right eye due to 1+ nuclear sclerotic and 2+ posterior subcapsular cataract. Best corrected visual acuity was 20/50 in the right eye. Indications for surgery were overall decrease in vision, difficulty seeing words on a computer screen, difficulty reading, difficulty seeing words, closed caption or game scores on TV and difficulty driving in low light or at night. She was consented at length concerning risks and benefits of cataract surgery, after which she expressed a desire to proceed with surgery. OPERATIVE PROCEDURE: Patient was taken to OR #3 and placed under monitored anesthesia care. A surgical timeout was conducted confirming correct patient, correct procedure, and correct surgical site. She was given topical anesthesia and prepped and draped in the usual sterile fashion. The eye was entered at the 6 o'clock and 3 o'clock positions. Intracameral Shugarcaine was injected into the anterior chamber, followed by Viscoat. A continuous-tear curvilinear capsulorrhexis was performed. The nucleus was hydrodissected and phacoemulsified. The cortex was evacuated using automated infusion and aspiration. Provisc was injected in the capsular bag and an 18.0 diopter intraocular lens inserted in the bag. Infusion and aspiration was used to evacuate the viscoelastic materials. The eye was inflated to physiologic pressure using balanced salt solution and found to be watertight. Approximately 0.25 mL of a mixture of triamcinolone and moxifloxacin was injected transsclerally into the vitreous in the inferotemporal quadrant. An additional 0.55 mL of a mixture of triamcinolone, moxifloxacin, and vancomycin was injected subconjunctivally in the superior quadrant for infection and inflammation prophylaxis. Wound integrity was checked with Weck-Sonia sponges. Patient was taken from the operating room in good condition and given postoperative instructions. TD: 08/12/2019 09:30 TIM
== END 2019-08-12 07:29 | disposition home or self-care (01) ==
LOC: SDS 07:28
PROVIDERS: ATTEND Ophthalmology
PROC: 08RJ3JZ Replacement of Right Lens with Synthetic Substitute, Percutaneous Approach (ICD-10-PCS; principal; 2019-08-12 09:00)
DX: H25.041 Posterior subcapsular polar age-related cataract, right eye (principal); I10 Essential (primary) hypertension; G40.909 Epilepsy, unspecified, not intractable, without status epilepticus; D64.9 Anemia, unspecified; K21.9 Gastro-esophageal reflux disease without esophagitis; F32.9 Major depressive disorder, single episode, unspecified; H53.002 Unspecified amblyopia, left eye; Z87.891 Personal history of nicotine dependence
CPT/HCPCS: 66984; A9270; J3490; V2632

== ENCOUNTER 2020-04-08 07:48 | Emergency (ER) | payer MEDICARE, OTHER ==
[2020-04-08] MEDS ORDERED: SODIUM CHLORIDE 0.9% 1,000 ML IV STA ×2 (08:39→09:59)
[2020-04-08] MEDS ORDERED: DEXAMETHASONE 10 MG/ML VIAL IVP STA (08:39)
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
[2020-04-08 09:09] LABS: BASOPHILS % (AUTO) 0.4 %; EOSINOPHILS # (AUTO) 0.7 10^3/uL (0.0-0.7); EOSINOPHILS % (AUTO) 13.8 %; HGB - HEMOGLOBIN 12.7 g/dL (12.0-16.0); LYMPHOCYTES # (AUTO) 1.6 10^3/uL (1.5-3.5); LYMPHOCYTES % (AUTO) 32.8 %; MEAN CORPUSCULAR HEMOGLOBIN 35.5 pg (27.0-31.0); MEAN CORPUSCULAR HGB CONC 33.5 g/dL (32.0-36.0); MEAN CORPUSCULAR VOLUME 105.9 fL (81.0-99.0); MEAN PLATELET VOLUME 8.9 fL (7.9-10.8); MONOCYTES # (AUTO) 0.3 10^3/uL (0.0-1.0); MONOCYTES % (AUTO) 6.2 %; NEUTROPHILS # (AUTO) 2.3 10^3/uL (1.5-6.6); NEUTROPHILS % (AUTO) 46.6 %; PLT - PLATELET COUNT 163 10^3/uL (130-450); RED BLOOD COUNT 3.58 10^6/uL (4.20-5.40); RED CELL DISTRIBUTION WIDTH 11.2 % (12.0-15.0)
[2020-04-08 09:19] LABS: ALBUMIN 4.6 g/dL (3.2-5.5); ALBUMIN/GLOBULIN RATIO 1.6 (1.0-2.2); BILIRUBIN,TOTAL 0.8 mg/dL (0.2-1.0); CALCIUM 11.3 mg/dL (8.5-10.3); CREATININE 1.2 mg/dL (0.4-1.0); TOTAL PROTEIN 7.5 g/dL (6.7-8.2)
--- NOTE | 2020-04-08 09:27 | XRAY Report ---
PROCEDURE: Chest 1 View X-Ray INDICATIONS: right sided chest pain TECHNIQUE: One view of the chest was acquired. COMPARISON: 06/21/2016 and 06/08/2013 FINDINGS: Surgical changes and devices: Stable postsurgical changes of the right humerus and lower lumbar spine . Lungs and pleura: No pleural effusions or pneumothorax. Lungs are clear. Mediastinum: Mediastinal contours appear normal. Heart size is normal. Bones and chest wall: No suspicious bony lesions. Overlying soft tissues appear unremarkable. IMPRESSION: Chest without acute cardiopulmonary abnormalities. Reviewed by: Gavino Martinez MD on 04/08/2020 9:26 AM PDT Approved by: Gavino Martinez MD on 04/08/2020 9:26 AM PDT Station ID: [id number]
[2020-04-08 10:33] LABS: BILIRUBIN,URINE NEGATIVE (NEGATIVE); CLARITY,URINE SL. CLOUDY (CLEAR); GLUCOSE, URINE (UA) NEGATIVE (NEGATIVE); KETONES,URINE (UA) NEGATIVE (NEGATIVE); LEUKOCYTE ESTERASE, URINE TRACE (NEGATIVE); NITRITE,URINE POSITIVE (NEGATIVE); OCCULT BLOOD,URINE NEGATIVE (NEGATIVE); PROTEIN,URINE NEGATIVE (NEGATIVE); UROBILINOGEN,URINE 0.2 (NORMAL) E.U./dL (NORMAL)
[2020-04-08 10:39] LABS: BACTERIA,URINE Moderate /HPF (None Seen); RBC,URINE None Seen /HPF (0-5); SQUAMOUS EPITHELIAL CELL,UR MANY Squamous (<= Few)
[2020-04-08] MEDS ORDERED: MAGNESIUM HYDROXIDE 2,400 MG/30 ML UDC PO STA (11:05)
[2020-04-08 11:10] VITALS: BP 116/79
== END 2020-04-08 11:23 | disposition home or self-care (01) ==
LOC: ED 07:48
DX: E86.0 Dehydration (principal); K59.01 Slow transit constipation; F17.200 Nicotine dependence, unspecified, uncomplicated
CPT/HCPCS: 36415; 71045; 80053; 81001; 83690; 85025; 96361; 96374; 99284; A9270; 81003; 87040; 87086

== ENCOUNTER 2020-12-29 21:21 | Emergency (ER) | payer MEDICARE, OTHER ==
--- NOTE | 2020-12-29 22:25 | ED Physician Documentation ---
PD HPI LOWER EXT INJURY - Stated complaint Stated Complaint: RT FOOT PX/FALL - Chief complaint Chief Complaint: Trauma Ext - History obtained from History obtained from: Patient - History of Present Illness PD HPI LOW EXT INJURY LOCATION: Right, Ankle, Foot Type of injury: Twist (inversion injury on uneven ground. No fall per se.) Where injury occurred: Home Timing - onset: How many hours ago (1), Today Timing - details: Abrupt onset, Still present Worsened by: Moving, Palpating, Other (walking hurts, but is able to do that.) Associated symptoms: Swelling. 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 : Other HEENT: Chronic vision loss Psych: Depression Musculoskeletal: Other Derm: None - Past Surgical History Past Surgical History: Yes General: Bowel surgery Ortho: Spine surgery, Other /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 DEVELOPMENT SPECIALIST MANAGER: Hysterectomy, Oophrectomy HEENT: Cataracts Derm: Other - Present Medications Home Medications: Ambulatory Orders Medication Instructions Recorded Confirmed Felbamate [Felbatol] 800 mg PO BID 11/04/12 08/12/19 polyethylene glycoL 3350 [Miralax] 17 gm PO BID PRN #1 bottle 03/27/13 08/12/19 Esomeprazole Magnesium [Nexium] 40 mg PO BID 11/02/13 08/12/19 Ethosuximide 250 mg PO BID 11/02/13 08/12/19 bisacodyL [Dulcolax] 10 mg PO BID 11/02/13 08/12/19 Acetaminophen 500 mg PO Q4H 10/19/15 08/12/19 Triamterene/Hydrochlorothiazid 1 mg PO DAILY 11/06/15 08/12/19 [Triamterene-Hctz 37.5-25 mg Cp] Acyclovir 200 mg PO DAILY 03/05/17 08/12/19 Oxycodone HCl [Oxycontin] 10 mg PO DAILY 06/17/19 08/12/19 amLODIPine [Norvasc] 10 mg PO DAILY 06/17/19 08/12/19 traZODone [Desyrel] 50 mg PO DAILY 06/17/19 08/12/19 - Allergies Allergies/Adverse Reactions: Allergies Allergy/AdvReac Type Severity Reaction Status Date / Time divalproex sodium AdvReac Severe Rash Verified 12/29/20 21:48 [From Depakote] lithium [[place]] AdvReac Severe Anxiety Verified 12/29/20 21:48 adhesive AdvReac Intermediate Itching Verified 12/29/20 21:48 buprenorphine [From Butrans] AdvReac Intermediate Nausea Verified 12/29/20 21:48 morphine AdvReac Intermediate Itching Verified 12/29/20 21:48 nalbuphine HCl * AdvReac Intermediate Itching Verified 12/29/20 21:48 [From Nubain] pregabalin [From Lyrica] AdvReac Intermediate Anxiety Verified 12/29/20 21:48 buprenorphine HCl * AdvReac Unknown Unknown Verified 12/29/20 21:48 [From Suboxone] carbamazepine [From Tegretol] AdvReac Unknown Unknown Verified 12/29/20 21:48 clobazam [From Onfi] AdvReac Unknown Itching Verified 12/29/20 21:48 naloxone HCl * AdvReac Unknown Unknown Verified 12/29/20 21:48 [From Suboxone] saboxone AdvReac Intermediate Nausea Uncoded 12/29/20 21:48 tape AdvReac Intermediate Itching Uncoded 12/29/20 21:48 - Social History Does the pt smoke?: Yes Smoking Status: Current every day smoker Does the pt drink ETOH?: No Does the pt have substance abuse?: No - Immunizations Immunizations are current?: No Immunizations: TDAP >10years/unknown - POLST Patient has POLST: No PD ED PE NORMAL - Vitals Vital signs reviewed: Yes - General General: Alert and oriented X 3, No acute distress, Well developed/nourished - Derm Derm: Normal color, Warm and dry - Extremities Extremities: Other (right ankle tender anterolateral aspect with effusion and mild ecchymosis. Inversion testing PTFL feels firm, with some laxity and pain with stressing ATFL. mild tender distal fibula. Achilles firm and not tender. ) - Neuro Neuro: Alert and oriented X 3, No motor deficit, No sensory deficit Results - Vitals Vitals: Oxygen O2 Source [With Activity] Room air O2 Source Room air PD MEDICAL DECISION MAKING - ED course Complexity details: reviewed results (question of cortical irregular on one view, but not seen on others. ), considered differential, d/w patient Departure - Departure Disposition: 01 Home, Self Care Clinical Impression: Ankle sprain Condition: Stable Record reviewed to determine appropriate education?: Yes Instructions: ED Sprain Ankle W X Ray Follow-Up: DELILAH WANG MD [Primary Care Provider] - Comments: No obvious fracture seen on x-ray. Presume an ankle sprain of the anterior ligament. The other ligaments feel firm. Use the Aircast when up and around for the next 10 to 14 days to support the ankle. You will likely want to wear the splint regularly even when rested for the first several days to a week. Ice elevate and rest the ankle often. Discharge Date/Time: 12/29/20 23:45
[2020-12-29] MEDS ORDERED: ACETAMINOPHEN 325 MG TABLET PO STA (22:42)
[2020-12-29 23:54] VITALS: BP 167/94
--- NOTE | 2020-12-30 08:26 | XRAY Report ---
PROCEDURE: Ankle 3 View RT INDICATIONS: injury/fall/swollen R ankle TECHNIQUE: 3 views of the ankle were acquired. COMPARISON: None FINDINGS: Bones: Minimally displaced oblique distal fibular fracture. No other fractures or dislocations. Pes p lanus. Bones are osteopenic. Ankle mortise is normally aligned. No suspicious bony lesions. Soft tissues: No tibiotalar joint effusion. Achilles tendon appears normal. IMPRESSION: Minimally displaced oblique distal fibular fracture. Reviewed by: Rashaun Ibanez MD on 12/30/2020 7:25 AM LEANNA Approved by: Rashaun Ibanez MD on 12/30/2020 7:25 AM LEANNA Station ID: [id number]
== END 2020-12-29 23:45 | disposition home or self-care (01) ==
LOC: ED 21:21
DX: S93.491A Sprain of other ligament of right ankle, initial encounter (principal); X50.1XXA Overexertion from prolonged static or awkward postures, initial encounter; Y93.K9 Activity, other involving animal care; Y92.828 Other wilderness area as the place of occurrence of the external cause; F17.200 Nicotine dependence, unspecified, uncomplicated
CPT/HCPCS: 73610; 99282; 99283; A9270

== ENCOUNTER 2021-03-10 21:37 | Inpatient (IN) | payer MEDICARE, OTHER ==
--- NOTE | 2021-03-10 22:31 | ED Physician Documentation ---
PD HPI ABD PAIN - Stated complaint Stated Complaint: ABD PX - Chief complaint Chief Complaint: Abd Pain - History obtained from History obtained from: Patient - History of Present Illness Timing - onset: How many days ago (2-3 days of abdominal distension and cramping pain. Nausea without vomiting. Recent fall with right rib fracture and had pain meds increased from daily at night to BID. Minimal stool output.) Timing - duration: Days (2-3) Timing - details: Abrupt onset, Still present Quality: Aching, Fullness/distended Location: All over / everywhere Radiation: Lower back Improved by: Laying still Worsened by: Eating, Palpation. No: Breathing Associated symptoms: Nausea, Constipation (chronically but has not had BM the past 3 days since increasing pain meds to BID.), Loss of appetite, Other (tense abd distension). No: Fever, Vomiting Similar symptoms before: Has not had sx before (He has had problems with constipation chronically with some intestinal cramps at times. No similar degree of distention in the past.) Recently seen: Emergency Dept (4 days ago s/p fall with xray showing right 10th rib fracture, no PTX (some intestinal air dilation noted on plain film).) Review of Systems Constitutional: denies: Fever, Chills Nose: denies: Rhinorrhea / runny nose, Congestion Throat: denies: Sore throat Cardiac: reports: Chest pain / pressure (right posterior in area of recent rib fracture.) Respiratory: denies: Cough GI: reports: Abdominal Pain, Abdominal Swelling, Nausea, Constipation. denies: Vomiting, Diarrhea, Bloody / black stool : denies: Dysuria Skin: denies: Rash, Lesions Neurologic: reports: Generalized weakness. denies: Near syncope PD PAST MEDICAL HISTORY - Past Medical History Cardiovascular: Hypertension Respiratory: Asthma Neuro: Head injury, Seizure disorder, Other Endocrine/Autoimmune: None GI: GERD [employer]ER: 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 : Other HEENT: Chronic vision loss Psych: Depression Musculoskeletal: Other Derm: None - Past Surgical History Past Surgical History: Yes General: Bowel surgery Ortho: Spine surgery, Other /[employer]: Hysterectomy, Oophrectomy HEENT: Cataracts Derm: Other - Present Medications Home Medications: Ambulatory Orders Medication Instructions Recorded Confirmed Felbamate [Felbatol] 800 mg PO BID 11/04/12 03/11/21 polyethylene glycoL 3350 [Miralax] 17 gm PO BID PRN #1 bottle 03/27/13 08/12/19 Esomeprazole Magnesium [Nexium] 40 mg PO DAILY 11/02/13 03/11/21 Ethosuximide 250 mg PO BID 11/02/13 03/11/21 bisacodyL [Dulcolax] 10 mg PO BID 11/02/13 03/11/21 Acetaminophen 500 mg PO Q4H 10/19/15 08/12/19 Triamterene/Hydrochlorothiazid 1 mg PO DAILY 11/06/15 08/12/19 [Triamterene-Hctz 37.5-25 mg Cp] Acyclovir 200 mg PO DAILY 03/05/17 03/11/21 Oxycodone HCl [Oxycontin] 10 mg PO DAILY 06/17/19 03/11/21 amLODIPine [Norvasc] 10 mg PO DAILY 06/17/19 03/11/21 traZODone [Desyrel] 50 mg PO DAILY 06/17/19 03/11/21 Ascorbic Acid [Vitamin C] 1,000 mg PO DAILY 03/11/21 03/11/21 Aspirin [[place]az[place]] 81 mg PO BID 03/11/21 03/11/21 Atorvastatin [Lipitor] 20 mg PO DAILY 03/11/21 03/11/21 Cholecalciferol (Vitamin D3) 1,250 mcg PO DAILY 03/11/21 03/11/21 [Vitamin D3] Duloxetine HCl [Cymbalta] 60 mg PO BID 03/11/21 03/11/21 Naproxen Sodium [Aleve] 220 mg PO BID 03/11/21 03/11/21 Triamterene/Hdyrochlor 37.5/25 mg PO DAILY 03/11/21 [Dyazide] Vitamin B Complex 03/11/21 - Allergies Allergies/Adverse Reactions: Allergies Allergy/AdvReac Type Severity Reaction Status Date / Time divalproex sodium AdvReac Severe Rash Verified 03/10/21 22:10 [From Depakote] lithium [[place]] AdvReac Severe Anxiety Verified 03/10/21 22:10 adhesive AdvReac Intermediate Itching Verified 03/10/21 22:10 buprenorphine [From Butrans] AdvReac Intermediate Nausea Verified 03/10/21 22:10 morphine AdvReac Intermediate Itching Verified 03/10/21 22:10 nalbuphine HCl * AdvReac Intermediate Itching Verified 03/10/21 22:10 [From Nubain] pregabalin [From Lyrica] AdvReac Intermediate Anxiety Verified 03/10/21 22:10 buprenorphine HCl * AdvReac Unknown Unknown Verified 03/10/21 22:10 [From Suboxone] carbamazepine [From Tegretol] AdvReac Unknown Unknown Verified 03/10/21 22:10 clobazam [From Onfi] AdvReac Unknown Itching Verified 03/10/21 22:10 naloxone HCl * AdvReac Unknown Unknown Verified 03/10/21 22:10 [From Suboxone] saboxone AdvReac Intermediate Nausea Uncoded 03/10/21 22:10 tape AdvReac Intermediate Itching Uncoded 03/10/21 22:10 - Social History Does the pt smoke?: Yes Smoking Status: Current every day smoker Does the pt drink ETOH?: No Does the pt have substance abuse?: No - Immunizations Immunizations are current?: No Immunizations: TDAP >10years/unknown - POLST Patient has POLST: No PD ED PE NORMAL - Vitals Vital signs reviewed: Yes - General General: Alert and oriented X 3, Well developed/nourished - HEENT HEENT: Atraumatic - Neck Neck: Supple, no meningeal sign, No adenopathy - Cardiac Cardiac: RRR, No murmur - Respiratory Respiratory: Clear bilaterally, Other (right posterolateral lower rib with moderate tenderness. No crepitance. ) - Abdomen Abdomen: Other (general tenderness to palpation. Severely distended and tight abd diffusely. No bowel sounds. No hernias. ). No: Normal bowel sounds (diminished to absent bowel sounds. Severely distended with taught abdomen. ) - Female Female : Deferred - Rectal Rectal: Other (some stool in vault that is firm. Not impacted per se. ) - Back Back: No CVA TTP - Derm Derm: Warm and dry. No: Normal color (mild pallor) - Extremities Extremities: No tenderness to palpate, No edema, No calf tenderness / cord - Neuro Neuro: Alert and oriented X 3 (looks to for answers at times. ), No motor deficit, Normal speech Results - Vitals Vitals: Vital Signs - 24 hr 03/10/21 03/11/2103/11/21 22:00 00:00 01:03 Temperature 36.9 C 36.6 C Heart Rate 103 H 90 88 Respiratory 16 16 18 Rate Blood Pressure 157/97 H 167/89 H 165/116 H O2 Saturation 98 99 98 03/11/21 03/11/21 02:00 03:00 Temperature 36.2 C L 36.6 C Heart Rate 90 92 Respiratory 16 18 Rate Blood Pressure 154/96 H 160/100 H O2 Saturation 100 99 Oxygen O2 Source [With Activity] Room air O2 Source Room air - Labs Labs: Laboratory Tests 03/10/21 03/10/21 03/11/21 23:40 23:40 01:13 WBC 6.7 RBC 3.91 L Hgb 12.4 Hct 38.3 MCV 98.0 MCH 31.7 H MCHC 32.4 RDW 13.0 Plt Count 209 MPV 8.7 Neut # (Auto) 4.3 Lymph # (Auto) 1.4 L [place] # (Auto) 0.5 Eos # (Auto) 0.5 Baso # (Auto) 0.0 Absolute Nucleated RBC 0.00 Nucleated RBC % 0.0 Sodium 135 Potassium 3.5 Chloride 95 L Carbon Dioxide 28 Anion Gap 12.0 BUN 28 H Creatinine 1.0 Estimated GFR (MDRD) 55 L Glucose 124 H Lactic Acid Calcium 10.1 Total Bilirubin 0.5 AST 28 ALT 28 Alkaline Phosphatase 91 Total Protein 6.8 Albumin 3.6 Globulin 3.2 Albumin/Globulin Ratio 1.1 Lipase 52 H Urine Color YELLOW Urine Clarity CLEAR Urine pH 6.0 Ur Specific [place] 1.020 Urine Protein 100 H Urine Glucose (UA) NEGATIVE Urine Ketones NEGATIVE Urine Occult Blood NEGATIVE Urine Nitrite NEGATIVE Urine Bilirubin NEGATIVE Urine Urobilinogen 0.2 (NORMAL) Ur Leukocyte Esterase TRACE H Urine RBC None Seen Urine WBC 4-5 Ur Squamous Epith Cells RARE Squamous Urine Bacteria Many H Ur Microscopic Review INDICATED Urine Culture Comments INDICATED 03/11/21 02:50 WBC RBC Hgb Hct MCV MCH MCHC RDW Plt Count MPV Neut # (Auto) Lymph # (Auto) [place] # (Auto) Eos # (Auto) Baso # (Auto) Absolute Nucleated RBC Nucleated RBC % Sodium Potassium Chloride Carbon Dioxide Anion Gap BUN Creatinine Estimated GFR (MDRD) Glucose Lactic Acid 0.8 Calcium Total Bilirubin AST ALT Alkaline Phosphatase Total Protein Albumin Globulin Albumin/Globulin Ratio Lipase Urine Color Urine Clarity Urine pH Ur Specific [place] Urine Protein Urine Glucose (UA) Urine Ketones Urine Occult Blood Urine Nitrite Urine Bilirubin Urine Urobilinogen Ur Leukocyte Esterase Urine RBC Urine WBC Ur Squamous Epith Cells Urine Bacteria Ur Microscopic Review Urine Culture Comments - Rads (name of study) abd/pelvic CT Radiology: Prelim report reviewed (abundant stool with conolic ileus. Small right pleural effusion. Acute right posterior 10th rib fracture. ), EMP read contemporaneously (severely distended intestinal loops. Dense stool in areas. No perforation. ), See rad report PD MEDICAL DECISION MAKING - ED course Complexity details: re-evaluated patient (no output with Mineral oil enema x 2. ALso given PO Miralax, but increased nausea. Severely distended abdomen concerns me for intestinal injury from distension. ), considered differential (marked distension with recent fall. Concern for organ injury, perforated viscus, bowel obstruction versus obstipation from increased pain meds. Absent bowel sounds and tense abd distension. ), d/w senior erp consultant (talked with Dr Mohamud, surgery, who refers it to Hospitalist. ) ED course: I could not find methylnaltrexone nor naloxegol on [employer] formulary. These may even be detrimental given without some loosening of the obstipation? I am not going to be able to sufficiently improve her here in the ER. Departure - Departure Disposition: ED Place in Observation Clinical Impression: Therapeutic opioid-induced constipation (OIC), Adynamic ileus Rib fracture Qualifiers: Encounter type: subsequent encounter Rib fracture type: single rib Fracture type: closed Laterality: right Fracture healing: with routine healing Qualified Code(s): S22.31XD - Fracture of one rib, right side, subsequent encounter for fracture with routine healing Condition: Stable Record reviewed to determine appropriate education?: Yes
[2021-03-10] MEDS ORDERED: KETOROLAC 15 MG/ML VIAL IVP STA (22:47)
[2021-03-10] MEDS ORDERED: HYDROmorphone 1 MG/ML CARPUJECT IVP STA (22:47)
[2021-03-10] MEDS ORDERED: SODIUM CHLORIDE 0.9% 1,000 ML IV STA (22:47)
[2021-03-10] MEDS ORDERED: IOPAMIDOL-300 100 ML VIAL ONE (22:55)
[2021-03-10 23:52] LABS: BASOPHILS % (AUTO) 0.4 %; EOSINOPHILS # (AUTO) 0.5 10^3/uL (0.0-0.7); EOSINOPHILS % (AUTO) 6.7 %; HCT - HEMATOCRIT 38.3 % (37.0-47.0); HGB - HEMOGLOBIN 12.4 g/dL (12.0-16.0); LYMPHOCYTES # (AUTO) 1.4 10^3/uL (1.5-3.5); LYMPHOCYTES % (AUTO) 20.7 %; MEAN CORPUSCULAR HEMOGLOBIN 31.7 pg (27.0-31.0); MEAN CORPUSCULAR HGB CONC 32.4 g/dL (32.0-36.0); MEAN PLATELET VOLUME 8.7 fL (7.9-10.8); MONOCYTES # (AUTO) 0.5 10^3/uL (0.0-1.0); MONOCYTES % (AUTO) 7.9 %; NEUTROPHILS # (AUTO) 4.3 10^3/uL (1.5-6.6); NEUTROPHILS % (AUTO) 64.2 %; PLT - PLATELET COUNT 209 10^3/uL (130-450); RED BLOOD COUNT 3.91 10^6/uL (4.20-5.40); WHITE BLOOD COUNT 6.7 x10^3/uL (4.8-10.8)
[2021-03-11 00:04] LABS: ALBUMIN 3.6 g/dL (3.2-5.5); ALBUMIN/GLOBULIN RATIO 1.1 (1.0-2.2); BILIRUBIN,TOTAL 0.5 mg/dL (0.2-1.0); CALCIUM 10.1 mg/dL (8.5-10.3); POTASSIUM 3.5 mmol/L (3.5-5.0); TOTAL PROTEIN 6.8 g/dL (6.7-8.2)
[2021-03-11] MEDS ORDERED: MINERAL OIL ENEMA 133 ML BOTTLE RC STA (00:58)
[2021-03-11] MEDS ORDERED: IOPAMIDOL-300 100 ML VIAL IVP ONE (00:58)
[2021-03-11 01:35] LABS: BILIRUBIN,URINE NEGATIVE (NEGATIVE); GLUCOSE, URINE (UA) NEGATIVE (NEGATIVE); KETONES,URINE (UA) NEGATIVE (NEGATIVE); LEUKOCYTE ESTERASE, URINE TRACE (NEGATIVE); NITRITE,URINE NEGATIVE (NEGATIVE); OCCULT BLOOD,URINE NEGATIVE (NEGATIVE); PROTEIN,URINE 100 mg/dL (NEGATIVE); UROBILINOGEN,URINE 0.2 (NORMAL) E.U./dL (NORMAL)
[2021-03-11 01:37] LABS: CLARITY,URINE CLEAR (CLEAR)
[2021-03-11 01:43] LABS: BACTERIA,URINE Many /HPF (None Seen); RBC,URINE None Seen /HPF (0-5); SQUAMOUS EPITHELIAL CELL,UR RARE Squamous (<= Few)
[2021-03-11] MEDS ORDERED: polyethylene glycoL 3350 17 GM PACKET PO STA (02:19)
[2021-03-11] MEDS ORDERED: MAGNESIUM CITRATE 296 ML BOTTLE PO STA (02:30)
[2021-03-11] MEDS ORDERED: DIATRIZOATE MEGLU/DIATRIZO SOD 30 ML BOTTLE PO ONE (02:30)
[2021-03-11] MEDS ORDERED: NON FORMULARY MED SUBQ SCH (03:00)
[2021-03-11] MEDS ORDERED: cefTRIAXone 1 GM in SODIUM CHLORIDE 0.9% MINIBAG 100 ML IV STA (03:41)
[2021-03-11] MEDS ORDERED: SODIUM CHLORIDE FLUSH 0.9% 10 ML SYRINGE IVP PRN (03:42)
[2021-03-11] MEDS ORDERED: oxyCODONE 5 MG TABLET PO PRN (03:44)
[2021-03-11] MEDS ORDERED: ONDANSETRON 4 MG/2 ML VIAL IVP PRN (03:44)
--- NOTE | 2021-03-11 03:57 | HISTORY & PHYSICAL EXAMINATION ---
History and Physical - History and Physical Chief complaint: Abdominal pain, Constipation Source of history: ER signout, medical record review History of present illness: The patient is a 70-year-old white female who has history of functional impairment and is often seen for frequent falls. 4 days ago she had a hospital visit and was diagnosed with rib fracture. Patient is opiate dependent, in addition due to recent injury opiate was increased from once daily to twice daily. Patient presented to the ER overnight on March 10 of March 11 complaining of abdominal discomfort and constipation. It was reported that the last normal bowel movement was about 3 days ago and since then patient only had small hard bowel movements. History was obtained from the ER and per medical chart review. On admission the patient could not meaningfully interact. When I interviewed her she could not confirm her past medical problems, could not discuss her functional status or living situation. She could not list or discuss her symptoms. At times she had fast speech with word salad and her statements were contradictory and did not make sense. During the ER stay patient received an enema and laxative however she remained with distended abdomen and did not produce a bowel movement. CT scan showed functional bowel obstruction and colon full of stool. Urine analysis was positive. Laboratories otherwise unremarkable. 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 Multiple skeletal injuries Chronic pain/opiate dependence Hypertension Asthma Gastroesophageal reflux 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 Hysterectomy and bilateral salpingo-oophorectomy Depression Seizure History of bowel surgery Allergies Allergy/AdvReac Type Severity Reaction Status Date / Time divalproex sodium AdvReac Severe Rash Verified 03/10/21 22:10 [From Depakote] lithium [[place]] AdvReac Severe Anxiety Verified 03/10/21 22:10 adhesive AdvReac Intermediate Itching Verified 03/10/21 22:10 buprenorphine [From Butrans] AdvReac Intermediate Nausea Verified 03/10/21 22:10 morphine AdvReac Intermediate Itching Verified 03/10/21 22:10 nalbuphine HCl * AdvReac Intermediate Itching Verified 03/10/21 22:10 [From Nubain] pregabalin [From Lyrica] AdvReac Intermediate Anxiety Verified 03/10/21 22:10 buprenorphine HCl * AdvReac Unknown Unknown Verified 03/10/21 22:10 [From Suboxone] carbamazepine [From Tegretol] AdvReac Unknown Unknown Verified 03/10/21 22:10 clobazam [From Onfi] AdvReac Unknown Itching Verified 03/10/21 22:10 naloxone HCl * AdvReac Unknown Unknown Verified 03/10/21 22:10 [From Suboxone] saboxone AdvReac Intermediate Nausea Uncoded 03/10/21 22:10 tape AdvReac Intermediate Itching Uncoded 03/10/21 22:10 Outpatient medications: Felbamate [Felbatol] 800 mg PO BID 11/04/12 polyethylene glycoL 3350 [Miralax] 17 gm PO BID PRN #1 bottle 03/27/13 Esomeprazole Magnesium [Nexium] 40 mg PO DAILY 11/02/13 Ethosuximide 250 mg PO BID 11/02/13 bisacodyL [Dulcolax] 10 mg PO BID 11/02/13 Acetaminophen 500 mg PO Q4H 10/19/15 Triamterene/Hydrochlorothiazid [Triamterene-Hctz 37.5-25 mg Cp] 1 mg PO DAILY 11/06/15 Acyclovir 200 mg PO DAILY 03/05/17 Oxycodone HCl [Oxycontin] 10 mg PO DAILY 06/17/19 amLODIPine [Norvasc] 10 mg PO DAILY 06/17/19 traZODone [Desyrel] 50 mg PO DAILY 06/17/19 Ascorbic Acid [Vitamin C] 1,000 mg PO DAILY 03/11/21 Aspirin [[place]] 81 mg PO BID 03/11/21 Atorvastatin [Lipitor] 20 mg PO DAILY 03/11/21 Cholecalciferol (Vitamin D3) [Vitamin D3] 1,250 mcg PO DAILY 03/11/21 Duloxetine HCl [Cymbalta] 60 mg PO BID 03/11/21 Naproxen Sodium [Aleve] 220 mg PO BID 03/11/21 Triamterene/Hdyrochlor 37.5/25 [Dyazide] mg PO DAILY 03/11/21 Vitamin B Complex 03/11/21 Family history: Patient cannot provide family history as she is confused on admission. Social history and functional status: Per prior medical record the patient has chronic impairment with multiple falls, ambulatory dysfunction, cognitive impairment, in past record she was described as almost bedbound with some upper extremity contractures, she has history of cervical spine injury. On admission she was confused and could not provide social history. CODE STATUS Patient is unable to discuss CODE STATUS, therefore she is full code per default Review of symptoms: Patient was a poor historian and could not meaningfully discuss her symptoms; however she did complain of abdominal distention and discomfort. 12 point review was attempted. There was no additional positive. Physical exam: General: The patient is a well-developed thin and frail elderly female. Not in distress. Confused. Respiratory: No increased work of breathing, clear to auscultation bilaterally without wheezes or crackles. CVS: S1, S2, Regular, no murmur rub or gallop. Abdomen: Hard, largely distended with active high-pitched bowel tones, diffuse tenderness without guarding or rebound. Neurologic: Alert, not oriented to situation, cannot meaningfully interact, at times speaking in word salad, pleasantly confused; no focal lateralizing sign. Psych: Cooperative. Lymph: Minimal pitting edema. Skin: No pallor. Musculoskeltal: Minimal erythema on the knees, small bruises on the upper extremities. Laboratory Results - last 24 hr 03/10/21 03/10/21 03/11/21 23:40 23:40 01:13 WBC 6.7 RBC 3.91 L Hgb 12.4 Hct 38.3 MCV 98.0 MCH 31.7 H MCHC 32.4 RDW 13.0 Plt Count 209 MPV 8.7 Neut # (Auto) 4.3 Lymph # (Auto) 1.4 L [place] # (Auto) 0.5 Eos # (Auto) 0.5 Baso # (Auto) 0.0 Absolute Nucleated RBC 0.00 Nucleated RBC % 0.0 Sodium 135 Potassium 3.5 Chloride 95 L Carbon Dioxide 28 Anion Gap 12.0 BUN 28 H Creatinine 1.0 Estimated GFR (MDRD) 55 L Glucose 124 H Lactic Acid Calcium 10.1 Total Bilirubin 0.5 AST 28 ALT 28 Alkaline Phosphatase 91 Total Protein 6.8 Albumin 3.6 Globulin 3.2 Albumin/Globulin Ratio 1.1 Lipase 52 H Urine Color YELLOW Urine Clarity CLEAR Urine pH 6.0 Ur Specific [place] 1.020 Urine Protein 100 H Urine Glucose (UA) NEGATIVE Urine Ketones NEGATIVE Urine Occult Blood NEGATIVE Urine Nitrite NEGATIVE Urine Bilirubin NEGATIVE Urine Urobilinogen 0.2 (NORMAL) Ur Leukocyte Esterase TRACE H Urine RBC None Seen Urine WBC 4-5 Ur Squamous Epith Cells RARE Squamous Urine Bacteria Many H Ur Microscopic Review INDICATED Urine Culture Comments INDICATED 03/11/21 02:50 WBC RBC Hgb Hct MCV MCH MCHC RDW Plt Count MPV Neut # (Auto) Lymph # (Auto) [place] # (Auto) Eos # (Auto) Baso # (Auto) Absolute Nucleated RBC Nucleated RBC % Sodium Potassium Chloride Carbon Dioxide Anion Gap BUN Creatinine Estimated GFR (MDRD) Glucose Lactic Acid 0.8 Calcium Total Bilirubin AST ALT Alkaline Phosphatase Total Protein Albumin Globulin Albumin/Globulin Ratio Lipase Urine Color Urine Clarity Urine pH Ur Specific [place] Urine Protein Urine Glucose (UA) Urine Ketones Urine Occult Blood Urine Nitrite Urine Bilirubin Urine Urobilinogen Ur Leukocyte Esterase Urine RBC Urine WBC Ur Squamous Epith Cells Urine Bacteria Ur Microscopic Review Urine Culture Comments Imaging/ reviewed per electronic medical record Assessment and plan: Active issues/diagnoses Encephalopathy likely acute superimposed on baseline cognitive impairment/dementia/Opiate and Psychoactive meds-induced cognitive dysfunction, acute component could be secondary to urine infection Obstipation/constipation/functional bowel obstruction/opiate induced pseudoobstruction Positive urine analysis/urinary tract infection Recent rib fracture Multiple falls/ambulatory dysfunction History of seizure Multiple chronic medical problems as outlined at past medical history Plan and orders: Admitted under observation As patient was noted with significantly altered mentation we will check CT scan of the brain to rule out acute intracranial abnormality Tox screen, TSH, lithium level Bowel regimen including magnesium citrate, enema, Gastrografin Milk of magnesia daily should be used in the setting of chronic opiate Judicious opiate use Ceftriaxone for UTI Send urine culture, blood cultures PT/OT/case management evaluation SCDs for DVT prophylaxis Clear liquid diet, can be advanced after bowel movement past Reconcile outpatient medications continue as appropriate Full CODE STATUS Attestation: I certify that the patient meets criteria for observation,based on the admission diagnosis, and the above assessment, findings and plan; she is expected to be hospitalized for less than 48 hours.
[2021-03-11] MEDS ORDERED: SODIUM CHLORIDE 0.9% 1,000 ML IV SCH (04:00)
[2021-03-11 04:09] LABS: B. PARAPERTUSSIS- RESP PCR PAN NOT DETECTED; B. PERTUSSIS- RESP PCR PANEL NOT DETECTED; C. PNEUMONIAE- RESP PCR PANEL NOT DETECTED; CORONAVIRUS 229E-RESP PCR NOT DETECTED; CORONAVIRUS HKU1-RESP PCR NOT DETECTED; CORONAVIRUS NL63-RESP PCR NOT DETECTED; CORONAVIRUS OC43-RESP PCR NOT DETECTED; HUMAN METAPNEUMOVIRUS NOT DETECTED; INFLUENZA A- RESP PCR PANEL NOT DETECTED; INFLUENZA B - RESP PCR PANEL NOT DETECTED; M. PNEUMONIAE- RESP PCR PANEL NOT DETECTED; PARAINFLUENZA VIRUS 1 NOT DETECTED; PARAINFLUENZA VIRUS 2 NOT DETECTED; PARAINFLUENZA VIRUS 3 NOT DETECTED; PARAINFLUENZA VIRUS 4 NOT DETECTED; RHINOVIRUS/ENTEROVIRUS NOT DETECTED; RSV- RESP PCR PANEL NOT DETECTED; SARS-CoV-2 -RESP PCR PANEL NOT DETECTED
[2021-03-11] MEDS: ACETAMINOPHEN 500 MG TABLET PO SCH ×5 (04:46→20:35)
--- NOTE | 2021-03-11 07:56 | CT Report ---
PROCEDURE: Abdomen/Pelvis W INDICATIONS: abd distension and pain for 2 days; recent fall. CONTRAST: IV CONTRAST: Isovue 300 ml: 100 PO CONTRAST: *NO PO CONTRAST TECHNIQUE: After the administration of intravenous contrast, 5 mm thick sections acquired from the diaphragms to the symphysis. 5 mm thick coronal and sagittal reformats were acquired. For radiation dose reducti on, the following was used: automated exposure control, adjustment of mA and/or kV according to nigel ent size. COMPARISON: CXR and abdominal radiographs 04/26/2019. CT lumbar spine 10/24/2018. CT abdomen and pelv is without contrast 03/27/2013. FINDINGS: Image quality: Good. ABDOMEN: Lung bases: Mild opacity at the right lung base. Small low-density right pleural effusion. Heart siz e is normal. Solid organs: Liver and spleen are normal in size. Small cyst in the right lobe liver. Enhancing foc us at the dome of the liver likely a benign hemangioma. Gallbladder is not significantly distended. N o calcified gallstones. Biliary system is non dilated. Cyst in the tail the pancreas measuring 1.2 c m, (12/24). This is difficult to appreciate on the prior noncontrast enhanced CTs but may be present i 2018. No definite adrenal nodules. Kidneys enhance symmetrically. No hydronephrosis. There may be mild scarring at the superior pole of the right kidney. There are several simple appearing renal cyst s bilaterally. Largest on the right measuring 5.1 cm. There are a few cortical hypodensities which ar e too small to further characterize. Peritoneum and bowel: Stomach is within normal limits. There were no dilated loops of small bowel. Th ere is a rectosigmoid colonic anastomosis. There is prominent stool throughout the colon and rectum. There is gaseous distention of the transverse colon. The appendix is not identified. No ascites. No p neumoperitoneum. Nodes and vessels: No retroperitoneal or mesenteric adenopathy by size criteria. Aorta and inferior vena cava are normal in size. Miscellaneous: No ventral hernias. PELVIS: Genitourinary: Bladder wall thickness is normal. There are a few foci of gas in the antidependent ur inary bladder. Miscellaneous: No inguinal hernias or adenopathy. Bones: No suspicious bony lesions. Right posterior 10th rib fracture with mild this placement, (08/28 6). No vertebral body compression fractures. L2-L3 pedicle screw fixation with intervertebral body sp acer. Mild to moderate multilevel DDD. 3 screws within the right femoral neck. IMPRESSION: 1. Right posterior 10th rib fracture. 2. Small right pleural effusion and associated suspected mild compressive atelectasis. 3. Prominent stool throughout the colon and rectum. This could be due to constipation and/or adynamic ileus. 4. Trace gas in urinary bladder is likely iatrogenic from catheterization. 5. Small incidental cyst in the tail the pancreas measuring 1.2 cm. This could represent a small IPMN . -Recommend follow-up CT pancreas or MRI in approximately 2 years to demonstrate stability. Minor discrepancy with the overnight preliminary interpretation. Incidental pancreatic tail cyst. Results were communicated to Dr. Joaquina Trujillo at 03/11/2021 6:52 AM [facility]. Reviewed by: Jose Arellano MD on 03/11/2021 6:55 AM LEANNA Approved by: Jose Arellano MD on 03/11/2021 6:55 AM [facility] Station ID: [id number]
[2021-03-11 08:30] LABS: LITHIUM < 0.05 mmol/L
--- NOTE | 2021-03-11 08:44 | CT Report ---
PROCEDURE: HEAD WO INDICATIONS: AMS TECHNIQUE: Noncontrast 4.5 mm thick angled axial sections acquired from the foramen magnum to the vertex. For r adiation dose reduction, the following was used: automated exposure control, adjustment of mA and/or kV according to patient size. COMPARISON: Head CT 10/17/2017.. FINDINGS: Image quality: Excellent. CSF spaces: Basal cisterns are patent. No extra-axial fluid collections. Ventricles are normal in size and shape. Brain: No midline shift. No intracranial masses or hemorrhage. Hypodensity in the left thalamus and right caudate nucleus are similar the prior CT. There is periventricular hypodensity consistent with chronic microvascular ischemic disease. Terminal ICA atherosclerotic plaque. Age-related , l oss. Skull and face: Calvarium and visualized facial bones are intact, without suspicious lesions. Sinuses: Visualized sinuses and mastoids are clear. IMPRESSION: No acute intracranial abnormality. 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 Chronic microvascular ischemic disease. Reviewed by: Jose Arellano MD on 03/11/2021 7:43 AM LEANNA Approved by: Jose Arellano MD on 03/11/2021 7:43 AM LEAN[facility] Station ID: [id number]
[2021-03-11] MEDS: ATORVASTATIN 10 MG TABLET PO SCH (08:48)
[2021-03-11] MEDS: amLODIPine 5 MG TABLET PO SCH (08:48)
[2021-03-11] MEDS: PANTOPRAZOLE 40 MG TABLET PO SCH ×2 (08:48→20:33)
[2021-03-11] MEDS: DULoxetine 30 MG CAPSULE PO SCH ×2 (08:48→20:32)
[2021-03-11] MEDS: ACYCLOVIR 200 MG CAPSULE PO SCH (08:48)
[2021-03-11] MEDS: CHOLECALCIFEROL 5,000 UNIT CAPSULE PO SCH (08:48)
[2021-03-11] MEDS: traZODone 50 MG TABLET PO SCH (08:48)
[2021-03-11] MEDS: bisacodyL 5 MG TABLET PO SCH ×2 (08:49→20:33)
[2021-03-11] MEDS: MAGNESIUM HYDROXIDE 2,400 MG/30 ML UDC PO SCH (08:49)
[2021-03-11] MEDS: HEPARIN 5,000 UNIT/ML VIAL SUBQ SCH ×2 (08:54→20:33)
[2021-03-11] MEDS: ASPIRIN EC 81 MG TABLET PO SCH ×2 (08:54→20:33)
[2021-03-11] MEDS: FELBAMATE 400 MG PO SCH ×2 (09:01→20:34)
[2021-03-11] MEDS: ETHOSUXIMIDE 250 MG PO SCH ×2 (09:01→20:34)
[2021-03-11] MEDS: SODIUM CHLORIDE FLUSH 0.9% 10 ML SYRINGE IVP SCH ×3 (09:01→23:45)
[2021-03-11] MEDS: LUBIPROSTONE 24 MCG CAPSULE PO SCH ×2 (11:45→17:39)
[2021-03-12] MEDS: ACETAMINOPHEN 325 MG TABLET PO PRN ×2 (00:44→08:05)
[2021-03-12] MEDS: ACETAMINOPHEN 500 MG TABLET PO SCH ×6 (00:48→21:21)
[2021-03-12 05:50] LABS: BASOPHILS % (AUTO) 0.6 %; EOSINOPHILS # (AUTO) 0.3 10^3/uL (0.0-0.7); HCT - HEMATOCRIT 34.1 % (37.0-47.0); HGB - HEMOGLOBIN 11.3 g/dL (12.0-16.0); LYMPHOCYTES # (AUTO) 1.1 10^3/uL (1.5-3.5); LYMPHOCYTES % (AUTO) 21.7 %; MEAN CORPUSCULAR HGB CONC 33.1 g/dL (32.0-36.0); MEAN CORPUSCULAR VOLUME 96.6 fL (81.0-99.0); MEAN PLATELET VOLUME 9.1 fL (7.9-10.8); MONOCYTES # (AUTO) 0.4 10^3/uL (0.0-1.0); MONOCYTES % (AUTO) 7.3 %; NEUTROPHILS # (AUTO) 3.4 10^3/uL (1.5-6.6); NEUTROPHILS % (AUTO) 64.2 %; PLT - PLATELET COUNT 202 10^3/uL (130-450); RED BLOOD COUNT 3.53 10^6/uL (4.20-5.40); WHITE BLOOD COUNT 5.2 x10^3/uL (4.8-10.8)
[2021-03-12 06:01] LABS: CALCIUM 9.5 mg/dL (8.5-10.3); CREATININE 0.8 mg/dL (0.4-1.0); POTASSIUM 3.2 mmol/L (3.5-5.0)
[2021-03-12] MEDS: LUBIPROSTONE 24 MCG CAPSULE PO SCH ×2 (08:09→17:14)
[2021-03-12] MEDS: ACYCLOVIR 200 MG CAPSULE PO SCH (08:23)
[2021-03-12] MEDS: amLODIPine 5 MG TABLET PO SCH (08:23)
[2021-03-12] MEDS: ATORVASTATIN 10 MG TABLET PO SCH (08:37)
[2021-03-12] MEDS: ASPIRIN EC 81 MG TABLET PO SCH ×2 (08:37→21:21)
[2021-03-12] MEDS: DULoxetine 30 MG CAPSULE PO SCH ×2 (08:39→21:21)
[2021-03-12] MEDS: CHOLECALCIFEROL 5,000 UNIT CAPSULE PO SCH (08:40)
[2021-03-12] MEDS: traZODone 50 MG TABLET PO SCH (08:41)
[2021-03-12] MEDS: HEPARIN 5,000 UNIT/ML VIAL SUBQ SCH ×2 (08:42→21:25)
[2021-03-12] MEDS: MAGNESIUM HYDROXIDE 2,400 MG/30 ML UDC PO SCH (08:42)
[2021-03-12] MEDS: SODIUM CHLORIDE FLUSH 0.9% 10 ML SYRINGE IVP SCH ×2 (08:46→17:14)
[2021-03-12] MEDS: FELBAMATE 400 MG PO SCH ×2 (08:57→21:22)
[2021-03-12] MEDS: ETHOSUXIMIDE 250 MG PO SCH ×2 (08:58→21:22)
[2021-03-12] MEDS: bisacodyL 5 MG TABLET PO SCH ×2 (09:03→21:21)
[2021-03-12] MEDS: PANTOPRAZOLE 40 MG TABLET PO SCH ×2 (09:03→21:21)
[2021-03-12] MEDS: POTASSIUM CHLOR 10 MEQ/100 ML 10 MEQ/100 ML BAG IV SCH ×3 (09:09→11:22)
--- NOTE | 2021-03-12 11:40 | PHARMACY PROGRESS NOTE ---
- Best Possible Medication History Admit Date and Time: 03/11/21 1059 Processed by: Pharmacy Medication History completed: Yes Patient Interview: Completed (CALLED PATIENT'S WHO WAS ABLE TO CONFIRM HOME MEDICATIONS) As the person ultimately responsible for medication therapy, providers are able to order a medication from an existing home medication list in [facility] via the "Reconcile Routine" prior to Confirmation of that medication by physician support coordinator. Such practice is discouraged except when the physician, in their clinical judgment, deems that a medical need exists for a medication without regard to previous use.
--- NOTE | 2021-03-12 17:46 | PROVIDER PROGRESS NOTE ---
Assessment/Plan - Problem List (1) Encephalopathy Assessment/Plan: Patient has improved with alertness ever since having a bowel movement this morning and had starting treatment for her UTI. There is suspicion that she has baseline dementia or cognitive impairment. OT evaluation is planned and will also request a cognitive evaluation. The PT evaluation today indicated that she will be needing a lot of care and in fact that she needs 24/7 caregivers. It may not be a safe discharge to send her back to live with her elderly (2) E. coli UTI Assessment/Plan: She is getting IV ceftriaxone for UTI. The urine culture grew E. coli. Await sensitivities to adjust antibiotics if needed (3) Frequent falls Assessment/Plan: The physical therapist and social workers met with her and spoke to the today and learned that this patient has had multiple falls causing trauma: Rece nt rib fracture from a fall, multiple past rib fractures from falls, C-spine fracture from a fall requiring fusion, LS spine fracture from a fall requiring fusion, hip fracture, right arm fractures requiring 4 surgeries, left foot fracture requiring surgery just 2 months ago in [place] (this is what she has the boot in the room for. Will order orthostatic vital sign checks. The PT evaluation indicated she needs 24-hour supervision and caregivers (4) Rib fracture Qualifiers: Encounter type: subsequent encounter Rib fracture type: single rib Fracture type: closed Laterality: right Fracture healing: with routine heal ing Qualified Code(s): S22.31XD - Fracture of one rib, right side, subsequent encounter for fracture with routine healing Assessment/Plan: This was recent and she got opioid prescriptions for this as well. Continue with incentive spirometry and mechanisms to avoid atelectasis and pneumonia. Continue with pain meds as needed (5) Opioid dependence with current use Assessment/Plan: This patient has chronic pain and has had multiple fall falls which have created trauma and caused pain, for which she is on opioids. She presents confused and lethargic which may partly be from this opioid use. We will try to keep narcotic meds to a minimum, use Flexeril or Toradol or NSAIDs orally if poss (6) Therapeutic opioid-induced constipation (OIC) Assessment/Plan: Resolved. She had a BM today. (7) Hypokalemia Assessment/Plan: Likely related to poor p.o. intake Replace w/ K riders Follow BMP daily - Current Meds Current Meds: Current Medications Generic Name Dose Route Start Last Admin Trade Name Sammy PRN Reason Stop Dose Admin Acetaminophen 500 mg 03/11/21 21:00 03/12/21 17:14 Acetaminophen 500 Mg Tablet PO 500 mg Q4H RODNEY Administration Acyclovir 200 mg 03/11/21 09:00 03/12/21 08:23 Acyclovir 200 Mg Capsule PO 200 mg DAILY RODNEY Administration Amlodipine Besylate 10 mg 03/11/21 09:00 03/12/21 08:23 Amlodipine 5 Mg Tablet PO 10 mg DAILY RODNEY Administration Aspirin 81 mg 03/11/21 09:00 03/12/21 08:37 Aspirin Ec 81 Mg Tablet PO 81 mg BID RODNEY Administration Atorvastatin Calcium 20 mg 03/11/21 09:00 03/12/21 08:37 Atorvastatin 10 Mg Tablet PO 20 mg DAILY RODNEY Administration Bisacodyl 10 mg 03/11/21 09:00 03/12/21 09:03 Bisacodyl 5 Mg Tablet PO 10 mg BID RODNEY Administration Cholecalciferol 5,000 unit 03/11/21 09:00 03/12/21 08:40 Cholecalciferol 5,000 Unit Capsule PO 5,000 unit DAILY RODNEY Administration Duloxetine HCl 60 mg 03/11/21 09:00 03/12/21 08:39 Duloxetine 30 Mg Capsule PO 60 mg BID RODNEY Administration Heparin Sodium (Porcine) 5,000 unit 03/11/21 09:00 03/12/21 08:42 Heparin 5,000 Unit/Ml Vial SUBQ 5,000 unit BID RODNEY Administration Lubiprostone 24 mcg 03/11/21 10:00 03/12/21 17:14 Lubiprostone 24 Mcg Capsule PO 24 mcg BIDWM RODNEY Administration Magnesium Hydroxide 2,400 mg 03/11/21 09:00 03/12/21 08:42 Magnesium Hydroxide 2,400 Mg/30 Ml Udc PO 2,400 mg DAILY RODNEY Administration Pantoprazole Sodium 40 mg 03/11/21 09:00 03/12/21 09:03 Pantoprazole 40 Mg Tablet PO 40 mg BID RODNEY Administration Felbamate [Felbatol] 2 each 03/11/21 09:00 03/12/21 08:57 400 Mg Tablet PO 2 each BID RODNEY Administration Ethosuximide [ 1 each 03/11/21 09:00 03/12/21 08:58 Ethosuximide] 250 Mg PO 1 each Capsule BID RODNEY Administration Sodium Chloride 10 ml 03/11/21 03:42 03/11/21 05:37 Sodium Chloride Flush 0.9% 10 Ml Syringe IVP 10 ml PRN PRN Administration NEEDED PER PROVIDER ORDERS Sodium Chloride 10 ml 03/11/21 09:00 03/12/21 17:14 Sodium Chloride Flush 0.9% 10 Ml Syringe IVP 10 ml 0100,0900,1700 RODNEY Administration Trazodone HCl 50 mg 03/11/21 09:00 03/12/21 08:41 Trazodone 50 Mg Tablet PO 50 mg DAILY RODNEY Administration - Lab Result Fish Bone Diagrams: 03/12/21 05:12 03/12/21 05:12 - Additional Planning My Orders: My Active Orders 03/12/21 Lunch DIET [Soft Mechanical Diet] [DIET] 03/13/21 05:00 BMP - BASIC METABOLIC PANEL [CHEM] DAILYLAB CBC W/O DIFF (HEMOGRAM) [HEME] DAILYLAB MAGNESIUM [CHEM] DAILYLAB Subjective - Subjective Patient Reports: Resting Comfortably Nursing Reports: Other (She needs to be cued frequently, was evaluated by physical therapy) Objective Vital Signs: Vital Signs - 24 hr 03/11/21 03/11/21 03/12/21 21:00 23:25 04:59 Temperature 37.0 C 37.0 C 37.1 C Heart Rate [ 92 92 86 Brachial] Respiratory 14 16 16 Rate Blood Pressure 130/69 155/86 H 157/88 H [Left Brachial artery] Blood Pressure [Right Brachial artery] O2 Saturation 96 96 96 03/12/21 03/12/21 03/12/21 08:07 15:02 15:36 Temperature 36.7 C 36.6 C 36.7 C Heart Rate [ 87 87 86 Brachial] Respiratory 17 18 24 Rate Blood Pressure 151/71 H [Left Brachial artery] Blood Pressure 159/82 H 140/70 H [Right Brachial artery] O2 Saturation 96 96 98 Oxygen O2 Source [With Activity] Room air O2 Source Room air I&O (Last 24 Hrs): Intake and Output Totals x24h 03/10/21 03/11/21 03/12/21 23:59 23:59 23:59 Intake Total 2890 560 Output Total 150 Balance 2890 410 General: Alert, Other (Confused) HEENT: Mucous membr. moist/pink, Other (Cachectic) Neck: Supple Neuro: Alert, Disoriented, Non Focal Cardiovascular: Regular rate Respiratory: No respiratory distress Abdomen: Soft Extremities: No edema, Other (Positive skin tenting) - Results Results: Laboratory Results WBC 5.2 x10^3/uL (4.8-10.8) 03/12/21 05:12 RBC 3.53 10^6/uL (4.20-5.40) L 03/12/21 05:12 Hgb 11.3 g/dL (12.0-16.0) L 03/12/21 05:12 Hct 34.1 % (37.0-47.0) L 03/12/21 05:12 MCV 96.6 fL (81.0-99.0) 03/12/21 05:12 MCH 32.0 pg (27.0-31.0) H 03/12/21 05:12 MCHC 33.1 g/dL (32.0-36.0) 03/12/21 05:12 RDW 13.0 % (12.0-15.0) 03/12/21 05:12 Plt Count 202 10^3/uL (130-450) 03/12/21 05:12 MPV 9.1 fL (7.9-10.8) 03/12/21 05:12 Neut # (Auto) 3.4 10^3/uL (1.5-6.6) 03/12/21 05:12 Lymph # (Auto) 1.1 10^3/uL (1.5-3.5) L 03/12/21 05:12 [place] # (Auto) 0.4 10^3/uL (0.0-1.0) 03/12/21 05:12 Eos # (Auto) 0.3 10^3/uL (0.0-0.7) 03/12/21 05:12 Baso # (Auto) 0.0 10^3/uL (0.0-0.1) 03/12/21 05:12 Absolute Nucleated RBC 0.00 x10^3/uL 03/12/21 05:12 Nucleated RBC % 0.0 /100WBC 03/12/21 05:12 Sodium 139 mmol/L (135-145) 03/12/21 05:12 Potassium 3.2 mmol/L (3.5-5.0) L 03/12/21 05:12 Chloride 99 mmol/L (101-111) L 03/12/21 05:12 Carbon Dioxide 30 mmol/L (21-32) 03/12/21 05:12 Anion Gap 10.0 (6-13) 03/12/21 05:12 BUN 19 mg/dL (6-20) 03/12/21 05:12 Creatinine 0.8 mg/dL (0.4-1.0) 03/12/21 05:12 Estimated GFR (MDRD) 71 (>89) L 03/12/21 05:12 Glucose 103 mg/dL (70-100) H 03/12/21 05:12 Lactic Acid 0.8 mmol/L (0.5-2.2) 03/11/21 02:50 Calcium 9.5 mg/dL (8.5-10.3) 03/12/21 05:12 Magnesium 2.7 mg/dL (1.7-2.8) 03/12/21 05:12 Total Bilirubin 0.5 mg/dL (0.2-1.0) 03/10/21 23:40 AST 28 IU/L (10-42) 03/10/21 23:40 ALT 28 IU/L (10-60) 03/10/21 23:40 Alkaline Phosphatase 91 IU/L (42-121) 03/10/21 23:40 Total Protein 6.8 g/dL (6.7-8.2) 03/10/21 23:40 Albumin 3.6 g/dL (3.2-5.5) 03/10/21 23:40 Globulin 3.2 g/dL (2.1-4.2) 03/10/21 23:40 Albumin/Globulin Ratio 1.1 (1.0-2.2) 03/10/21 23:40 Lipase 52 U/L (22-51) H 03/10/21 23:40 TSH 2.51 uIU/mL (0.34-5.60) 03/11/21 07:30 Urine Color YELLOW 03/11/21 01:13 Urine Clarity CLEAR (CLEAR) 03/11/21 01:13 Urine pH 6.0 PH (5.0-7.5) 03/11/21 01:13 Ur Specific [place] 1.020 (1.002-1.030) 03/11/21 01:13 Urine Protein 100 mg/dL (NEGATIVE) H 03/11/21 01:13 Urine Glucose (UA) NEGATIVE mg/dL (NEGATIVE) 03/11/21 01:13 Urine Ketones NEGATIVE mg/dL (NEGATIVE) 03/11/21 01:13 Urine Occult Blood NEGATIVE (NEGATIVE) 03/11/21 01:13 Urine Nitrite NEGATIVE (NEGATIVE) 03/11/21 01:13 Urine Bilirubin NEGATIVE (NEGATIVE) 03/11/21 01:13 Urine Urobilinogen 0.2 (NORMAL) E.U./dL (NORMAL) 03/11/21 01:13 Ur Leukocyte Esterase TRACE (NEGATIVE) H 03/11/21 01:13 Urine RBC None Seen /HPF (0-5) 03/11/21 01:13 Urine WBC 4-5 /HPF (0-5) 03/11/21 01:13 Ur Squamous Epith Cells RARE Squamous (<= Few) 03/11/21 01:13 Urine Bacteria Many /HPF (None Seen) H 03/11/21 01:13 Ur Microscopic Review INDICATED 03/11/21 01:13 Urine Culture Comments INDICATED 03/11/21 01:13 Nasal Adenovirus (PCR) NOT DETECTED 03/11/21 02:48 Nasal B. parapertussis DNA (PCR) NOT DETECTED 03/11/21 02:48 Nasal Coronavir 229E PCR NOT DETECTED 03/11/21 02:48 Nasal Coronavir HKU1 PCR NOT DETECTED 03/11/21 02:48 Nasal Coronavir NL63 PCR NOT DETECTED 03/11/21 02:48 Nasal Coronavir OC43 PCR NOT DETECTED 03/11/21 02:48 Nasal Enterovir/Rhinovir PCR NOT DETECTED 03/11/21 02:48 Nasal Influenza B PCR NOT DETECTED 03/11/21 02:48 Nasal Influenza A PCR NOT DETECTED 03/11/21 02:48 Nasal Parainfluen 1 PCR NOT DETECTED 03/11/21 02:48 Nasal Parainfluen 2 PCR NOT DETECTED 03/11/21 02:48 Nasal Parainfluen 3 PCR NOT DETECTED 03/11/21 02:48 Nasal Parainfluen 4 PCR NOT DETECTED 03/11/21 02:48 Nasal RSV (PCR) NOT DETECTED 03/11/21 02:48 Nasal B.pertussis DNA PCR NOT DETECTED 03/11/21 02:48 Nasal C.pneumoniae (PCR) NOT DETECTED 03/11/21 02:48 [place]ilio Human Metapneumo PCR NOT DETECTED 03/11/21 02:48 Nasal M.pneumoniae (PCR) NOT DETECTED 03/11/21 02:48 Nasal SARS-CoV-2 (PCR) NOT DETECTED 03/11/21 02:48 Last Dose Date UNK 03/11/21 07:30 Last Dose Time UNK 03/11/21 07:30 [place] < 0.05 mmol/L 03/11/21 07:30 - Procedures Procedures: Procedures REPLACEMENT OF LEFT LENS WITH SYNTH SUB, PERC APPROACH (06/17/19) REPLACEMENT OF RIGHT LENS WITH SYNTH SUB, PERC APPROACH (08/12/19) REPOSITION RIGHT HUMERAL SHAFT WITH INT FIX, OPEN APPROACH (11/06/15)
[2021-03-12] MEDS: cefTRIAXone 1 GM in SODIUM CHLORIDE 0.9% MINIBAG 100 ML IV SCH (19:57)
[2021-03-13] MEDS: ACETAMINOPHEN 500 MG TABLET PO SCH ×4 (01:01→15:23)
[2021-03-13] MEDS: SODIUM CHLORIDE FLUSH 0.9% 10 ML SYRINGE IVP SCH ×2 (01:01→10:42)
[2021-03-13 06:06] LABS: HCT - HEMATOCRIT 35.5 % (37.0-47.0); HGB - HEMOGLOBIN 11.3 g/dL (12.0-16.0); MEAN CORPUSCULAR HEMOGLOBIN 31.6 pg (27.0-31.0); MEAN CORPUSCULAR HGB CONC 31.8 g/dL (32.0-36.0); MEAN CORPUSCULAR VOLUME 99.2 fL (81.0-99.0); RED BLOOD COUNT 3.58 10^6/uL (4.20-5.40); RED CELL DISTRIBUTION WIDTH 12.9 % (12.0-15.0); WHITE BLOOD COUNT 4.1 x10^3/uL (4.8-10.8)
[2021-03-13 06:18] LABS: CALCIUM 9.6 mg/dL (8.5-10.3); CREATININE 0.9 mg/dL (0.4-1.0); MAGNESIUM 2.7 mg/dL (1.7-2.8); POTASSIUM 3.7 mmol/L (3.5-5.0)
[2021-03-13] MEDS: amLODIPine 5 MG TABLET PO SCH (10:28)
[2021-03-13] MEDS: ACYCLOVIR 200 MG CAPSULE PO SCH (10:28)
[2021-03-13] MEDS: LUBIPROSTONE 24 MCG CAPSULE PO SCH (10:28)
[2021-03-13] MEDS: CHOLECALCIFEROL 5,000 UNIT CAPSULE PO SCH (10:29)
[2021-03-13] MEDS: ATORVASTATIN 10 MG TABLET PO SCH (10:29)
[2021-03-13] MEDS: ASPIRIN EC 81 MG TABLET PO SCH (10:29)
[2021-03-13] MEDS: PANTOPRAZOLE 40 MG TABLET PO SCH (10:29)
[2021-03-13] MEDS: DULoxetine 30 MG CAPSULE PO SCH (10:30)
[2021-03-13] MEDS: bisacodyL 5 MG TABLET PO SCH (10:30)
[2021-03-13] MEDS: MAGNESIUM HYDROXIDE 2,400 MG/30 ML UDC PO SCH (10:35)
[2021-03-13] MEDS: traZODone 50 MG TABLET PO SCH (10:35)
[2021-03-13] MEDS: HEPARIN 5,000 UNIT/ML VIAL SUBQ SCH (10:38)
[2021-03-13] MEDS: FELBAMATE 400 MG PO SCH (10:40)
[2021-03-13] MEDS: ETHOSUXIMIDE 250 MG PO SCH (10:41)
[2021-03-13] MEDS: cefTRIAXone 1 GM in SODIUM CHLORIDE 0.9% MINIBAG 100 ML IV SCH (10:42)
--- NOTE | 2021-03-13 14:00 | Discharge Plan ---
Discharge Plan Problem Reviewed?: Yes Disposition: 06 Home Health Service Condition: Stable Prescriptions: cefUROXime axetiL [Ceftin] 500 mg PO Q12H #6 tablet Diet: Regular Activity Restrictions: Activity as Tolerated Shower Restrictions: No (fall precaution) Instruction Topics: Falls Risks Prevent, Falls Prevent Move Safe Chair Bed, Falls Prevent Safe Cane Walker, Falls Change Living Space, UTI, Cefuroxime tablets Health Concerns: fall, UTI Plan of Treatment: You have clear mind, not confused at all. You were found to have UTI infection, short period of time of antibiotics is prescribed for you. Discuss the prevention of fall with you and your in the bedside. PT and OT evaluated and treated for you in the hospital, home health PT is arranged for you, frontier wheeled walker is prescribed for you. You prefer to continue your home pain management with your PCP. Care Goals: Stabilization, fall prevention, improvement of medical conditions. Assessment: Discussed the care plan with you and your in the bedside, answer your questions, You understood. Additional Instructions or Follow Up instructions: You may follow-up with your PCP in 1 to 2 weeks, Prevention of fall in the home. Should your symptoms return or worsen, You may present to ER or call 911 for help. Follow-Up Care: Home Health - PT No Smoking: If you smoke, Please STOP! Call for help. Follow-up with: DELILAH WANG MD [Primary Care Provider] -
--- NOTE | 2021-03-13 14:11 | DISCHARGE SUMMARY ---
Discharge Summary Admit Date: 03/11/21 Discharge Date: 03/13/21 Discharging Provider: Kyle Palmer Primary Care Provider: Hasmukh Clark Condition at Discharge: Stable Discharge Disposition: Home Health Service Discharge Facility Name: home - DIAGNOSES Discharge Diagnoses with Status of Each Condition: (1) Encephalopathy resolved as pt's baseline. pt is alert and oriented. (2) E. coli UTI pt is prescribed antibiotics to finish the treatment course. (3) Frequent falls PT evaluation pt and recommend pt can be d/c to home. Home health PT is arranged for patient. Discussed in detail for how to prevent fall with the patient and patient's at the bedside, Recommend patient use two wheels frontier walker instead of four wheels walker. (4) Rib fracture stable respiratory status. pt prefer to her home pain management plan with her PCP. (5) Opioid dependence with current use Discuss opioid usage with pt and her . pt like and want to keep her current pain management plan with her PCP (6) Therapeutic opioid-induced constipation (OIC) Resolved. She had BM. (7) Hypokalemia resolved. - HPI History of Present Illness: refer from Dr. Lee's HPI on 03/11/21 The patient is a 70-year-old white female who has history of functional impairment and is often seen for frequent falls. 4 days ago she had a hospital visit and was diagnosed with rib fracture. Patient is opiate dependent, in addition due to recent injury opiate was increased from once daily to twice daily. Patient presented to the ER overnight on March 10 of March 11 complaining of abdominal discomfort and constipation. It was reported that the last normal bowel movement was about 3 days ago and since then patient only had small hard bowel movements. History was obtained from the ER and per medical chart review. On admission the patient could not meaningfully interact. When I interviewed her she could not confirm her past medical problems, could not discuss her functional status or living situation. She could not list or discuss her symptoms. At times she had fast speech with word salad and her statements were contradictory and did not make sense. During the ER stay patient received an enema and laxative however she remained with distended abdomen and did not produce a bowel movement. CT scan showed f unctional bowel obstruction and colon full of stool. Urine analysis was positive. Laboratories otherwise unremarkable. - HOSPITAL COURSE Hospital Course: Patient was admitted for encephalopathy. Patient was found to have UTI. Patient also has history appearing opioid dependent and had frequent fall recently.Patient was treated with intravenous antibiotics for her UTI. Patient's encephalopathy was resolved. Patient's mental status returned to her baseline. PT had evaluation and treatment for patient. Home health PT is recommended for patient. Discussed in detail with the patient and patient'd for how to prevention fall in the home setting. They understand and agree to the plan. pt prefer to have her pain management plan with her PCP and let her PCP to review her home medications. - ALLERGIES Allergies/Adverse Reactions: Allergies Allergy/AdvReac Type Severity Reaction Status Date / Time divalproex sodium AdvReac Severe Rash Verified 03/10/21 22:10 [From Depakote] lithium [[place]] AdvReac Severe Anxiety Verified 03/10/21 22:10 adhesive AdvReac Intermediate Itching Verified 03/10/21 22:10 buprenorphine [From Butrans] AdvReac Intermediate Nausea Verified 03/10/21 22:10 morphine AdvReac Intermediate Itching Verified 03/10/21 22:10 nalbuphine HCl * AdvReac Intermediate Itching Verified 03/10/21 22:10 [From Nubain] pregabalin [From Lyrica] AdvReac Intermediate Anxiety Verified 03/10/21 22:10 buprenorphine HCl * AdvReac Unknown Unknown Verified 03/10/21 22:10 [From Suboxone] carbamazepine [From Tegretol] AdvReac Unknown Unknown Verified 03/10/21 22:10 clobazam [From Onfi] AdvReac Unknown Itching Verified 03/10/21 22:10 naloxone HCl * AdvReac Unknown Unknown Verified 03/10/21 22:10 [From Suboxone] - MEDICATIONS Home Medications: Ambulatory Orders Medication Instructions Recorded Confirmed Felbamate [Felbatol] 800 mg PO BID 11/04/12 03/11/21 polyethylene glycoL 3350 [Miralax] 17 gm PO BID PRN #1 bottle 03/27/13 03/12/21 Esomeprazole Magnesium [Nexium] 40 mg PO DAILY 11/02/13 03/11/21 Ethosuximide 250 mg PO BID 11/02/13 03/11/21 bisacodyL [Dulcolax] 10 mg PO BID 11/02/13 03/11/21 Acyclovir 200 mg PO DAILY 03/05/17 03/11/21 Oxycodone HCl [Oxycontin] 10 mg PO BID 06/17/19 03/12/21 amLODIPine [Norvasc] 10 mg PO DAILY 06/17/19 03/11/21 traZODone [Desyrel] 50 mg PO DAILY 06/17/19 03/11/21 Ascorbic Acid [Vitamin C] 1,000 mg PO DAILY 03/11/21 03/11/21 Aspirin [[place]] 81 mg PO BID 03/11/21 03/11/21 Atorvastatin [Lipitor] 20 mg PO DAILY 03/11/21 03/11/21 Duloxetine HCl [Cymbalta] 60 mg PO BID 03/11/21 03/11/21 Naproxen Sodium [Aleve] 220 mg PO BID PRN 03/11/21 03/11/21 Triamterene/Hdyrochlor 37.5/25 1 cap PO DAILY 03/11/21 03/12/21 [Dyazide] Vitamin B Complex 1 tab PO DAILY 03/11/21 03/12/21 Cholecalciferol [Vitamin D3] 5,000 unit PO DAILY 03/12/21 03/12/21 estradioL [Estradiol (Once Weekly)] 1 patch TD .QWEEK 03/12/21 03/12/21 traZODone [Desyrel] 50 mg PO QPM 03/12/21 03/12/21 cefUROXime axetiL [Ceftin] 500 mg PO Q12H #6 tablet 03/13/21 - PHYSICAL EXAM AT DISCHARGE General Appearance: positive: No acute distress, Alert. negative: Lethargic Eyes Bilateral: positive: Normal inspection, PERRL, No lid inflammation ENT: positive: ENT inspection nml, No signs of dehydration. negative: Purulent nasal drainage Neck: positive: Nml inspection, Trachea midline. negative: Thyromegaly, Tracheal deviation Respiratory: positive: Chest non-tender, No respiratory distress, Breath sounds nml. negative: Wheezes Cardiovascular: positive: Regular rate & rhythm, No murmur. negative: Tachycardia, Bradycardia, Systolic murmur, Diastolic murmur Peripheral Pulses: positive: 2+ Abdomen: positive: Non-tender, Nml bowel sounds, No distention. negative: Tenderness Back: positive: Nml inspection Skin: positive: Color nml, Warm, Dry. negative: Cyanosis Extremities: positive: Non-tender, Nml appearance. negative: Calf tenderness Neurologic/Psychiatric: positive: Sensation nml. negative: Weakness, Sensory loss, Facial droop, Slurred/abnml speech, Depressed mood/affect - LABS Result Diagrams: 03/13/21 05:58 03/13/21 05:58 - FOLLOW UP Follow Up: You have clear mind, not confused at all. You were found to have UTI infection, short period of time of antibiotics is prescribed for you. Discuss the prevention of fall with you and your in the bedside. PT and OT evaluated and treated for you in the hospital, home health PT is arranged for you. You prefer to continue your home pain management with your PCP. You may follow-up with your PCP in 1 to 2 weeks, Prevention of fall in the home. Should your symptoms return or worsen, You may present to ER or call 911 for help. - TIME SPENT Time Spent in Discharge (Minutes): 30
[2021-03-13 14:39] VITALS: BP 149/74
[2021-03-20 10:01] LABS: AMPHETAMINES NEGATIVE; MARIJUANA NEGATIVE
[2021-03-20 10:02] LABS: BARBITURATES NEGATIVE; BENZODIAZEPINES NEGATIVE
[2021-03-20 10:04] LABS: COCAINE METABOLITES NEGATIVE; METHADONE NEGATIVE; OPIATES NEGATIVE
[2021-03-20 10:05] LABS: PCP NEGATIVE
== END 2021-03-13 15:25 | disposition home health service (06) | DRG 71 ==
LOC: ED 21:37 → MS2 03-11 03:42 → OBSVTOIN 03-11 10:59
PROVIDERS: ADMIT Internal Medicine; ATTEND Nurse Practitioner Gerontology
DX: G93.40 Encephalopathy, unspecified (principal); K56.699 Other intestinal obstruction unspecified as to partial versus complete obstruction; N39.0 Urinary tract infection, site not specified; T40.605A Adverse effect of unspecified narcotics, initial encounter; F09 Unspecified mental disorder due to known physiological condition; F03.90 Unspecified dementia, unspecified severity, without behavioral disturbance, psychotic disturbance, mood disturbance, and anxiety; F11.20 Opioid dependence, uncomplicated; B96.20 Unspecified Escherichia coli [E. coli] as the cause of diseases classified elsewhere; S22.31XD Fracture of one rib, right side, subsequent encounter for fracture with routine healing; W19.XXXD Unspecified fall, subsequent encounter; Z91.81 History of falling; T40.0X5A Adverse effect of opium, initial encounter; K59.03 Drug induced constipation; Y92.9 Unspecified place or not applicable; E87.6 Hypokalemia; Z74.01 Bed confinement status; I10 Essential (primary) hypertension; J45.909 Unspecified asthma, uncomplicated; K21.9 Gastro-esophageal reflux disease without esophagitis; Z85.43 Personal history of malignant neoplasm of ovary; F32.9 Major depressive disorder, single episode, unspecified
CPT/HCPCS: 36415; 51701; 70450; 74177; 80048; 80053; 80178; 80307; 81001; 83605; 83690; 83735; 84443; 85025; 85027; 87040; 87086; 87181; 87631; 96365; 96372; 96375; 97161; 97165; 97530; 99284; 99285; A9270; G0378; G0480; J1170; J8499; Q9963; Q9967; 0202U; 80320; 81003

== ENCOUNTER 2023-05-22 18:17 | Emergency (ER) | payer MEDICARE, OTHER ==
[2023-05-22] MEDS ORDERED: SODIUM CHLORIDE 0.9% 1,000 ML IV STA (18:48)
--- NOTE | 2023-05-22 18:52 | ED Physician Documentation ---
PD HPI CHEST PAIN - Stated complaint Stated Complaint: CHEST PX/ PRESSURE - Chief complaint Chief Complaint: Abd Pain - History obtained from History obtained from: Patient, Family - Additional information Additional information: 72-year-old woman with multiple comorbidities but no history of coronary disease or heart disease presents for chest pain. She complained of chest pressure and dizziness a few hours ago. She has a bruise on her chest but does not know how she got it. Most of the history is from the as she is nonsensical but looking at the chart that is kind of chronic. PD PAST MEDICAL HISTORY - Past Medical History Past Medical History: Yes Cardiovascular: Hypertension Respiratory: Asthma Neuro: Dementia, Head injury, Seizure disorder, Other Endocrine/Autoimmune: None GI: GERD SUP[employer]ION [employer]ER: 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 : Other HEENT: Chronic vision loss Psych: Depression Musculoskeletal: Other Derm: None - Past Surgical History Past Surgical History: Yes General: Bowel surgery Ortho: Spine surgery, Other /SUP[employer]ER: Hysterectomy, Oophrectomy HEENT: Cataracts Derm: Other - Present Medications Home Medications: Ambulatory Orders Medication Instructions Recorded Confirmed Felbamate [Felbatol] 800 mg PO BID 11/04/12 05/22/23 Ethosuximide 250 mg PO BID 11/02/13 05/22/23 Acyclovir 200 mg PO DAILY 03/05/17 05/22/23 amLODIPine [Norvasc] 10 mg PO DAILY 06/17/19 05/22/23 Ascorbic Acid [Vitamin C] 1,000 mg PO DAILY 03/11/21 05/22/23 Atorvastatin [Lipitor] 20 mg PO DAILY 03/11/21 05/22/23 Cholecalciferol [Vitamin D3] 1,000 unit PO DAILY 03/12/21 05/22/23 traZODone [Desyrel] 50 - 100 mg PO HS 03/12/21 05/22/23 Docusate Sodium [Dulcolax Stool 100 mg PO BID 05/22/23 05/22/23 Softener] Lactulose 30 ml PO BID 05/22/23 05/22/23 Lisinopril [Zestril] 20 mg PO BID 05/22/23 05/22/23 Omeprazole Magnesium 20 mg PO DAILY 05/22/23 05/22/23 Venlafaxine [Effexor] 37.5 mg PO BID 05/22/23 05/22/23 - Allergies Allergies/Adverse Reactions: Allergies Allergy/AdvReac Type Severity Reaction Status Date / Time divalproex sodium AdvReac Severe Rash Verified 05/22/23 18:21 [From Depakote] lithium [[place]ruff] AdvReac Severe Anxiety Verified 05/22/23 18:21 adhesive AdvReac Intermediate Itching Verified 05/22/23 18:21 buprenorphine [From Butrans] AdvReac Intermediate Nausea Verified 05/22/23 18:21 morphine AdvReac Intermediate Itching Verified 05/22/23 18:21 nalbuphine HCl * AdvReac Intermediate Itching Verified 05/22/23 18:21 [From Nubain] pregabalin [From Lyrica] AdvReac Intermediate Anxiety Verified 05/22/23 18:21 buprenorphine HCl * AdvReac Unknown Unknown Verified 05/22/23 18:21 [From Suboxone] carbamazepine [From Tegretol] AdvReac Unknown Unknown Verified 05/22/23 18:21 clobazam [From Onfi] AdvReac Unknown Itching Verified 05/22/23 18:21 naloxone HCl * AdvReac Unknown Unknown Verified 03/10/21 22:10 [From Suboxone] - Social History Does the pt smoke?: Yes Smoking Status: Current every day smoker Does the pt drink ETOH?: No Does the pt have substance abuse?: No - Immunizations Immunizations are current?: No Immunizations: TDAP >10years/unknown - POLST Patient has POLST: No PD ED PE NORMAL - Vitals Vital signs reviewed: Yes - General General: Other (Alert and oriented to person but a poor historian) - HEENT HEENT: PERRL, EOMI - Neck Neck: Supple, no meningeal sign, No bony TTP - Cardiac Cardiac: RRR, No murmur, Other (Small bruise right upper chest wall) - Respiratory Respiratory: No respiratory distress, Clear bilaterally - Abdomen Abdomen: Non tender Results - Vitals Vitals: Vital Signs - 24 hr 05/22/23 18:21 Temperature 36.5 C Heart Rate 98 Respiratory 20 Rate Blood Pressure 132/71 H O2 Saturation 99 Oxygen O2 Source [] Room air O2 Source Room air - EKG (time done) 1828 EKG releavant findings:: EKG personally interpreted by author of this note. Relevant findings are: Rate: Rate (enter#) (87) Rhythm: NSR [place]: Normal Intervals: Normal MT QRS: Normal Ischemia: Non specific changes. No: ST elevation c/w ischemia, ST depression - Labs Labs: Laboratory Tests 05/22/23 05/22/23 05/22/23 18:49 19:22 19:22 WBC 5.5 RBC 3.57 L Hgb 11.7 L Hct 36.7 L MCV 102.8 H MCH 32.8 H MCHC 31.9 L RDW 12.0 Plt Count 160 MPV 9.7 Neut # (Auto) 2.9 Lymph # (Auto) 1.6 [place] # (Auto) 0.5 Eos # (Auto) 0.5 Baso # (Auto) 0.0 Absolute Nucleated RBC 0.00 Nucleated RBC % 0.0 Sodium 137 Potassium 4.2 Chloride 105 Carbon Dioxide 23 Anion Gap 9.0 BUN 49 H Creatinine 1.8 H Estimated GFR (MDRD) 28 L Glucose 94 Calcium 10.5 H Total Bilirubin 0.3 AST 19 ALT 16 Alkaline Phosphatase 92 Troponin I High Sens 5.1 Total Protein 6.0 L Albumin 4.0 Globulin 2.0 L Albumin/Globulin Ratio 2.0 Lipase 111 H Last Dose Date Not Reportable Last Dose Time Not Reportable Woodruff < 0.10 Departure - Departure Disposition: 01 Home, Self Care Clinical Impression: Chest pain Qualifiers: Chest pain type: unspecified Qualified Code(s): R07.9 - Chest pain, unspecified Condition: Good Record reviewed to determine appropriate education?: Yes Instructions: ED Chest Pain Atypical Unkn Cause Comments: No clear issue with your heart causing the chest pain today. We did note that your kidney function has declined, bvut it has been a couple of years since you had labs done here, so not sure how acute this is. Please followup with your primary care physician as they will need to monitor/recheck this. Specifically your BUN is 49 and creatinine 1.8. Drink plenty of fluids. Return if worse. Followup with your primary care physician, call tomorrow for the next available appointment. Forms: PCP List
[2023-05-22 18:56] LABS: BASOPHILS % (AUTO) 0.2 %; EOSINOPHILS # (AUTO) 0.5 10^3/uL (0.0-0.7); HCT - HEMATOCRIT 36.7 % (37.0-47.0); HGB - HEMOGLOBIN 11.7 g/dL (12.0-16.0); LYMPHOCYTES # (AUTO) 1.6 10^3/uL (1.5-3.5); LYMPHOCYTES % (AUTO) 28.4 %; MEAN CORPUSCULAR HEMOGLOBIN 32.8 pg (27.0-31.0); MEAN CORPUSCULAR HGB CONC 31.9 g/dL (32.0-36.0); MEAN CORPUSCULAR VOLUME 102.8 fL (81.0-99.0); MEAN PLATELET VOLUME 9.7 fL (7.9-10.8); MONOCYTES # (AUTO) 0.5 10^3/uL (0.0-1.0); MONOCYTES % (AUTO) 9.2 %; NEUTROPHILS # (AUTO) 2.9 10^3/uL (1.5-6.6); PLT - PLATELET COUNT 160 10^3/uL (130-450); RED BLOOD COUNT 3.57 10^6/uL (4.20-5.40); WHITE BLOOD COUNT 5.5 x10^3/uL (4.8-10.8)
--- NOTE | 2023-05-22 19:45 | XRAY Report ---
PROCEDURE: Chest 1 View X-Ray INDICATIONS: Chest Pain TECHNIQUE: One view of the chest was acquired. COMPARISON: 04/08/2020 FINDINGS: Surgical changes and devices: Postoperative change of the right humerus and the lumbar spine can be seen. Lungs and pleura: An incomplete inspiratory result is noted, with low lung volumes and crowding of t he vascular markings. No focal infiltrates are seen. No large pneumothorax or large pleural effusion can be seen. Mediastinum: Mediastinal contours appear normal. Heart size is normal. Bones and chest wall: No suspicious bony lesions. Age-appropriate degenerative changes are seen. Overlying soft tissues appear unremarkable. IMPRESSION: Low lung volumes, without an acute cardiopulmonary abnormality seen. Postoperative and degenerative changes are seen. Reviewed by: Isidro Jimenez MD on 05/22/2023 6:43 PM [facility] Approved by: Isidro Jimenez MD on 05/22/2023 6:43 PM [facility] Station ID: [id number]
[2023-05-22 19:46] LABS: BILIRUBIN,TOTAL 0.3 mg/dL (0.2-1.0); CALCIUM 10.5 mg/dL (8.5-10.3); CREATININE 1.8 mg/dL (0.6-1.3); POTASSIUM 4.2 mmol/L (3.5-4.5)
[2023-05-22 19:47] LABS: TROPONIN I HIGH SENSITIVITY 5.1 ng/L (2.3-14.8)
[2023-05-22 20:00] LABS: LITHIUM < 0.10 mmol/L
[2023-05-22 20:53] VITALS: BP 114/72; O2SAT 98
== END 2023-05-22 20:35 | disposition home or self-care (01) ==
LOC: ED 18:17
DX: R07.9 Chest pain, unspecified (principal); R79.89 Other specified abnormal findings of blood chemistry; F17.200 Nicotine dependence, unspecified, uncomplicated
CPT/HCPCS: 36415; 80053; 80178; 83690; 84484; 85025; 93005; 96360; 99283